=== PATIENT | female | born 1980 | race Caucasian/White ===

== ENCOUNTER 2019-09-29 18:09 | Emergency (ER) | payer OTHER ==
--- OUTSIDE RECORDS SUMMARY | 2019-09-29 18:12 | XMS REPORT | Clinical Summary ---
:1980 Author Organization [facility] Address [address] [place] [address] Care Team Providers Name Role Phone Kam Quinn MD Primary Care Provider Unavailable Allergies Not on File Medications Not on file Active Problems Not on file Social History Tobacco Use Types Packs/Day Years Used Date Never Assessed Sex Assigned at Date Recorded Not on file Job Start Date Occupation Industry Not on file Not on file Not on file Travel History Travel Start Travel End No recent travel history available. Last Filed Vital Signs Not on file Plan of Treatment Not on file Results Not on fileafter 09/28/2018 Insurance Payer Benefit Plan / Group Subscriber ID Type Phone A ddress [facility] [employer] xxxxxxxxx HMO/POS CARE CHOICE [phone] (Work)
--- OUTSIDE RECORDS SUMMARY | 2019-09-29 18:12 | XMS REPORT | Clinical Summary ---
:1980 Author Organization [facility] Address [address] [place] [address] Care Team Providers Name Role Phone Ronaldo Pang MD Primary Care Provider Allergies Active Allergy Reactions Severity Noted Date Comments Latex Rash Low 02/02/2012 Medications Medication Sig Dispensed Refills Start End Status Date Date levothyroxine 0 Active (SYNTHROID, LEVOXYL) 8 137 mcg tablet gabapentin (NEURONTIN) 0 Active 300 mg capsule 8 doxycycline (ORACEA) 0 Active 40 mg capsule 8 methocarbamol Take 500 mg 0 Acti ve (ROBAXIN) 500 MG by mouth 4 tablet (four) times a day. etodolac (LODINE) 500 0 Active MG tablet 6 hydroxychloroquine Take by 0 A ctive (PLAQUENIL) 200 mg mouth. tablet spironolactone 0 Activ e (ALDACTONE) 25 MG 6 tablet hydroxychloroquine 0 D iscontinued (PLAQUENIL) 200 mg 8 019 tablet spironolactone 0 Disco ntinued (ALDACTONE) 25 MG 8 019 tablet etodolac (LODINE) 200 Take 200 mg 0 Discontinued MG capsule by mouth 019 every 8 (eight) hours. cyclobenzaprine Take 1 tablet 30 tablet 0 Discontinued (FLEXERIL) 10 mg (10 mg total) 9 019 (Reorder) tablet by mouth 3 (three) times a day as needed for muscle spasms for up to 30 days. cyclobenzaprine Take 1 tablet 30 tablet 0 (FLEXERIL) 10 mg (10 mg total) 9 019 tablet by mouth 3 (three) times a day as needed for muscle spasms for up to 30 days. levothyroxine 0 Discon tinued (SYNTHROID, LEVOXYL) 6 019 150 mcg tablet clindamycin (CLEOCIN) Take 1 21 capsule 0 300 MG capsule capsule (300 9 019 mg total) by mouth 3 (three) times a day for 7 days. bacitracin 500 Apply 28 g 1 Expir ed unit/gram ointment topically 2 9 019 (two) times a day for 30 days. bacitracin 500 Apply 28 g 1 Expir ed unit/gram ointment topically 2 9 020 (two) times a day for 30 days. Active Problems Problem Noted Date Cervicalgia 10/25/2017 Cervical radiculopathy 10/25/2017 Encounters Date Type Specialty Care Team Description 05/02/2019 Hospital Encounter Radiology Giovanny Jimenez, Low renan k pain, unspecified renan k pain laterality , unspecified chronicity, unspecified whe ther sciatica presen t 05/02/2019 Hospital Encounter Giovanny Rand, Thoraci c spine pain 05/02/2019 Hospital Encounter Radiology Giovanny Jimenez, Neck pa in MD 04/16/2019 Transcribe Orders Access Giovanny Jimenez Neck tam n (Primary Dx); Thoracic spine pain; Low back pain, unspecified back pain laterality, unspecified chronicity, unspecified whether sciatica present 02/20/2019 Hospital Encounter Radiology Nancy Knott w anum exam; MD Carlene Breast cancer s creening 01/29/2019 Ancillary Procedure Obstetrics and Nancy Knott Dys pareunia in female; Gynecology MD Carlene Fibroids 01/29/2019 Office Visit Obstetrics Nancy Lynn woman exam (Primary Dx); Gynecology MD Carlene Breast cancer s creening; Dyspareunia in female; Fibroids 11/15/2018 Office Visit General Surgery Hugo, Gastric poly ps (Primary Dx); Quita Poon MD Fissure, anal 10/18/2018 Office Visit General Surgery Sg Arias, kelvin (Primary Dx); Quita Poon MD Internal hemor rhoids without complication after 09/28/2018 Family History Medical History Relation Name Comments Hypertension Brother Cancer Father skin cancer Diabetes Father Hypertension Father Diabetes Mother Hypertension Mother Cancer Paternal Grandfather skin Cancer Paternal Grandmother lung cancer Relation Name Status Comments Brother Father Mother Paternal Grandfather Paternal Grandmother Social History Tobacco Use Types Packs/Day Years Used Date Never Smoker Smokeless Tobacco: Never Used Alcohol Use Drinks/Week oz/Week Comments Yes 12 Standard drinks or equivalent 12.0 Sex Assigned at Date Recorded Not on file Job Start Date Occupation Industry Not on file Not on file Not on file Travel History Travel Start Travel End No recent travel history available. Last Filed Vital Signs Vital Sign Reading Time Taken Comments Blood Pressure 122/84 01/29/2019 11:26 AM CDT Pulse 87 01/29/2019 11:26 AM CDT Temperature 36.9 C (98.4 F) 11/15/2018 1:27 PM CDT Respiratory Rate - - Oxygen Saturation - - Inhaled Oxygen Concentration - - Weight 66.2 kg (146 lb) 01/29/2019 11:26 AM CDT Height 167.6 cm (5' 6") 01/29/2019 11:26 AM CDT Body Mass Index 23.57 01/29/2019 11:26 AM CDT Plan of Treatment Health Maintenance Due Date Last Done Comments CERVICAL CANCER SCREENING 11/18/1999 INFLUENZA VACCINE 12/20/2019 04/09/2015, 02/18/2015, 2013 Procedures Procedure Name Priority Date/Time Associated Comments Diagnosis MRI LUMBAR SPINE WO Routine 05/02/2019 12:15 Low back pain, Re sults for this CONTRAST PM RESEARCH LABORATORY MANAGER unspecified back procedure a re in pain laterality, the results unspecified section. chronicity, unspecified whether sciatica present MRI THORACIC SPINE WO Routine 05/02/2019 12:08 Thoracic spine pain Results for this CONTRAST PM RESEARCH LABORATORY MANAGER procedure are i n the results section. MRI CERVICAL SPINE WO Routine 05/02/2019 12:08 Neck pain Re sults for this CONTRAST PM RESEARCH LABORATORY MANAGER procedure are i n the results section. MAMMO BREAST SCREEN Routine 02/20/2019 12:31 Well woman exam Results for this TOMOSYNTHESIS PM CDT Breast cancer procedure are in BILATERAL screening the results section. THINPREP IMAGING PAP Routine 01/29/2019 3:01 Well woman exa m Results for this AND HPV MRNA E6/E7 PM CDT procedure are in REFLEX HPV 16,18/[address] the resu lts WITH CT/G section. US PELVIC TRANSVAGINAL Routine 01/29/2019 1:02 Dyspareunia in Results for this PM CDT female procedure are in Fibroids the results section. T4, FREE Routine 01/29/2019 12:12 Well woman exam Results for this PM CDT procedure are i n the results section. LIPID PANEL Routine 01/29/2019 12:12 Well woman exam Results for this PM CDT procedure are i n the results section. COMPREHENSIVE Routine 01/29/2019 12:12 Well woman exam Results for this METABOLIC PANEL PM CDT procedure ar e in the results section. CBC WITH PLATELET AND Routine 01/29/2019 12:12 Well woman exam Results for this DIFFERENTIAL PM CDT procedure are i n the results section. THYROID STIMULATING Routine 01/29/2019 12:12 Well woman exam R esults for this HORMONE PM CDT procedure are i n the results section. HEMOGLOBIN A1C Routine 01/29/2019 12:12 Well woman exam Result s for this PM CDT procedure are i n the results section. after 09/28/2018 Results MRI Lumbar Spine Wo Contrast (05/02/2019 12:15 PM RESEARCH LABORATORY MANAGER) Specimen Narrative Performed At EXAMINATION: MRI LUMBAR SPINE WO CONTRAS T [facility] CLINICAL HISTORY: M54.5 Low back pain, M 54.5 COMPARISON: MRI L-spine 07/27/2015. TECHNIQUE: Multiplanar multisequence nonenhanced MRI e xamination was performed of the Lumbar spine. FINDINGS: There are 5 non-rib bearing lumbar type vertebrae, the lowest labeled L5 in this report as identified by the lumbosacral angle and iliolumbar ligaments. There is progressing disc degeneration at L 5-S1 when compared to the prior MRI from 2016 as detailed below. There appears to be a right-sided pars interart icularis defect at L5 on the left, image 13 of series 2. There is marked bilateral posterior facet arthrosis with newly appearing 4 mm sp ondylolisthesis L5 on S1. No suspicious osseous lesions. Vertebral body heights are preserved. Conus medullaris terminates appropriately at the L2 L1 intervertebral level.No abnormal T2 hyperintense intramedullary signa l identified. The cauda equina nerve roots are symmetric and chang l in appearance. No abnormal thickening or clumping ident ified. Evaluation of the visualized soft tissues demonstrates no mass, adenopathy or aneurysm. No hydronephrosi s. Axial images through the disc spaces dem onstrate the following: L1-L2: No significant posterior disc disease, spinal c anal, subarticular zone, or neural foraminal stenosis. L2-L3: No significant posterior disc disease, spinal c anal, subarticular zone, or neural foraminal stenosis. L3-L4: No significant posterior disc disease, spinal c anal, subarticular zone, or neural foraminal stenosis. L4-L5: No significant posterior disc disease, spinal c anal, subarticular zone, or neural foraminal stenosis. Moderate posterior facet arthrosis is noted bilaterally. L5-S1: Grade 1 spondylolisthesis with uncovering the d isc and mild posterior disc bulge which results in marked left and mild to moderate right neural foraminal stenosis when combined with mar ked facet arthrosis, image 3 of series 6. Central canal is patent. There is contact of the exiting L5 nerve root on the left secondary to bulging disc material, imag e 13 of series 2. Evaluation of other visualized levels demonstrates no significant posterior disc disease, spinal canal, subarticular zon e, or neural foraminal stenosis. IMPRESSION: Progressing spondylolisthesis L5-S1 when compared to t he prior MRI from 2015, resulting in marked left neural foraminal stenos is and contact of the exiting L5 nerve root as detailed above. Recommend correlation for radiculopathy distribution. [id number] Procedure Note Hm Interface, Radiology Results Incoming - 05/02/2019 1:25 PM RESEARCH LABORATORY MANAGER EXAMINATION: MRI LUMBAR SPINE WO CONTRAST CLINICAL HISTORY: M54.5 Low back pain, M 54.5 COMPARISON: MRI L-spine 07/27/2015. TECHNIQUE: Multiplanar multisequence non enhanced MRI examination was performed of the Lumbar spine. FINDINGS: There are 5 non-rib bearing lumbar type vertebrae, the lowest labeled L5 in this report as identified by the lumbosacral angle and iliolumbar ligaments. There is progressing disc degeneration at L5-S1 when compared to the prior MRI from 2016 as detailed below. There appears to be a right-sided pars interarticularis defect at L5 on the left, image 13 of series 2. There is marked bilateral posterior facet arthrosis with newly appearing 4 mm spondylolisthesis L5 on S1. No suspicious osseous lesions. Vertebral body heights are preserved. Conus medullaris terminates appropriatel y at the L2 L1 intervertebral level.No abnormal T2 hyperintense intramedullary signal identified. The cauda equina nerve roots are symmetric and normal in appearance. No abnormal thickening or clumping identifi ed. Evaluation of the visualized soft tissue s demonstrates no mass, adenopathy or aneurysm. No hydronephrosis. Axial images through the disc spaces dem onstrate the following: L1-L2: No significant posterior disc dis ease, spinal canal, subarticular zone, or neural foraminal stenosis. L2-L3: No significant posterior disc dis ease, spinal canal, subarticular zone, or neural foraminal stenosis. L3-L4: No significant posterior disc dis ease, spinal canal, subarticular zone, or neural foraminal stenosis. L4-L5: No significant posterior disc dis ease, spinal canal, subarticular zone, or neural foraminal stenosis. Moderate posterior facet arthrosis is noted bilaterally. L5-S1: Grade 1 spondylolisthesis with un covering the disc and mild posterior disc bulge which results in marked left and mild to moderate right neural foraminal stenosis when combined with marked facet arthrosis, image 3 of series 6. Central canal is patent. There is contact of the exiting L5 nerve root on the left secondary to bulging disc material, image 13 of series 2. Evaluation of other visualized levels de monstrates no significant posterior disc disease, spinal canal, subarticular zone, or neural foraminal stenosis. IMPRESSION: Progressing spondylolisthesis L5-S1 when compared to the prior MRI from 2016, resulting in marked left neural foraminal stenosis and contact of the exiting L5 nerve root as detailed above. Recommend correlation for radiculopathy distribution. [id number] Performing Organization Address City/State/Zipcode Phone Number [facility] [address] [place] [address] MRI Thoracic Spine Wo Contrast (05/02/2019 12:08 PM RESEARCH LABORATORY MANAGER) Specimen Narrative Performed At EXAMINATION: MRI THORACIC SPINE WO CONTR AST [facility] CLINICAL HISTORY: M54.6 Pain in thoracic spine, M54.6 COMPARISON: None TECHNIQUE: Multiplanar multisequence noncontrast enhan frank examination was performed of the thoracic spine. FINDINGS: 12 rib-bearing thoracic type vertebrae visualized. The alignment is within normal limits. No subluxation. No abnormal guanaco ow edema. No suspicious osseous lesions. No degenerative marrow sig nal abnormality. Vertebral body and intervertebral disc h eights are preserved. No significant posterior disc disease, spinal canal, s ubarticular zone or neural foraminal stenosis throughout the thoracic s pine. No abnormal spinal cord signal. Conus medullaris terminates approp riately at the L1-L2 intervertebral level. Limited visualization the chest demonstrates no pleura l effusion or suspicious lung mass. Major vascular flow voids are pr esent, demonstrating patency. No hydronephrosis . IMPRESSION: No significant thoracic spine abnormalit y identified. [id number] Procedure Note Hm Interface, Radiology Results Incoming - 05/02/2019 1:26 PM RESEARCH LABORATORY MANAGER EXAMINATION: MRI THORACIC SPINE WO CONTRAST CLINICAL HISTORY: M54.6 Pain in thoracic spine, M54.6 COMPARISON: None TECHNIQUE: Multiplanar multisequence non contrast enhanced examination was performed of the thoracic spine. FINDINGS: 12 rib-bearing thoracic type vertebrae v isualized. The alignment is within normal limits. No subluxation. No abnormal marrow edema. No suspicious osseous lesions. No degenerative marrow signal abnormality. Vertebral body and intervertebral disc heights are preserved. No significant posterior disc disease, s john canal, subarticular zone or neural foraminal stenosis throughout the thoracic spine. No abnormal spinal cord signal. Conus medullaris terminates appropriately at the L1-L2 intervertebral level. Limited visualization the chest demonstr ates no pleural effusion or suspicious lung mass. Major vascular flow voids are present, demonstrating patency. No hydronephrosis. IMPRESSION: No significant thoracic spine abnormalit y identified. [id number] Performing Organization Address City/State/Zipcode Phone Number [facility] [address] [place] [address] MRI Cervical Spine Wo Contrast (05/02/2019 12:08 PM RESEARCH LABORATORY MANAGER) Specimen Narrative Performed At This result has an attachment that is no t available. EXAMINATION: MRI CERVICAL SPINE WO CONTRAST [facility] CLINICAL HISTORY: M54.2 Cervicalgia, M54.2 COMPARISON: MRI C-spine 11/05/2017. TECHNIQUE: Multiplanar multisequence non contrast enhanced examination was performed of the cervical spine. FINDINGS: No significant interval change appearing since the prior MRI from 2018. There is similar mild reversal of cervical lordosis, however no subluxation. Focal Modic type I marrow edema pattern degenerative changes are noted along the adjacent endplates of the C5-C6 intervertebral disc space, lucio ge 6 of series 3. Vertebral body heights are preserved. No suspicious osseous lesion. No developmental canal narrowing. The cervicomedullary junction is normal in appearance. No spinal cord signal abnormality. No prevertebral edema or neck mass ident ified. No cervical lymphadenopathy identified. Major vascular flow voids are present, demonstrating patency. Axial images through the disc spaces demonstrate the f ollowing: C1-C2: No significant spinal canal stenosis. C2-C3: No significant posterior disc dis ease, spinal canal, subarticular zone, or neural foraminal stenosis. C3-C4: No significant posterior disc dis ease, spinal canal, subarticular zone, or neural foraminal stenosis. C4-C5: No significant posterior disc dis ease, spinal canal, subarticular zone, or neural foraminal stenosis. C5-C6: Mild to moderate intervertebral d isc height loss with circumferential disc bulge which indents the ventral thecal sac and results in moderate bilateral neural foraminal stenosis when combined wit h marginal endplate osteophytes, image 21 of series 6. Spinal canal is patent. C6-C7: No significant posterior disc dis ease, spinal canal, subarticular zone, or neural foraminal stenosis. C7-T1: No significant posterior disc dis ease, spinal canal, subarticular zone, or neural foraminal stenosis. IMPRESSION: Similar moderate bilateral neural forami nal stenosis at C5-C6 secondary to intervertebral disc height loss, bulging disc material and marginal endplate osteophytes. There is also focal Modic type I marrow edema pattern degenerative changes along the adjacent endplates which likely contribute to discogen ic pain. [id number] Procedure Note Hm Interface, Radiology Results - 05/02/2019 1:21 PM RESEARCH LABORATORY MANAGER EXAMINATION: MRI CERVICAL SPINE WO CONTRAST CLINICAL HISTORY: M54.2 Cervicalgia, M54 .2 COMPARISON: MRI C-spine 11/05/2017. TECHNIQUE: Multiplanar multisequence non contrast enhanced examination was performed of the cervical spine. FINDINGS: No significant interval change appearing since the prior MRI from 2018. There is similar mild reversal of cervical lordosis, however no subluxation. Focal Modic type I marrow edema pattern degenerative changes are noted along the adjacent endplates o f the C5-C6 intervertebral disc space, lucio ge 6 of series 3. Vertebral body heights are preserved. No suspicious osseous lesion. No developmental canal narrowing. The cervicomedullary junction is normal in appearance. No spinal cord signal abnormality. No prevertebral edema or neck mass ident ified. No cervical lymphadenopathy identified. Major vascular flow voids are present, demonstrating patency. Axial images through the disc spaces dem onstrate the following: C1-C2: No significant spinal canal steno sis. C2-C3: No significant posterior disc dis ease, spinal canal, subarticular zone, or neural foraminal stenosis. C3-C4: No significant posterior disc dis ease, spinal canal, subarticular zone, or neural foraminal stenosis. C4-C5: No significant posterior disc dis ease, spinal canal, subarticular zone, or neural foraminal stenosis. C5-C6: Mild to moderate intervertebral d isc height loss with circumferential disc bulge which indents the ventral thecal sac and results in moderate bilateral neural foraminal stenosis when combined with marginal endplate osteophytes, image 21 of series 6. Spinal canal is patent. C6-C7: No significant posterior disc dis ease, spinal canal, subarticular zone, or neural foraminal stenosis. C7-T1: No significant posterior disc dis ease, spinal canal, subarticular zone, or neural foraminal stenosis. IMPRESSION: Similar moderate bilateral neural forami nal stenosis at C5-C6 secondary to intervertebral disc height loss, bulging disc material and marginal endplate osteophytes. There is also focal Modic type I marrow edema pattern degenerative changes along the adjacent endplates which likely contribu te to discogenic pain. [id number] Performing Organization Address City/State/Zipcode Phone Number [facility] [address] [place] [address] Mammo Breast Screen Tomosynthesis Bilateral (02/20/2019 12:31 PM CDT) Specimen Narrative Performed At PROCEDURE: MAMMO BREAST SCREEN TOMOSYNTH ESIS [facility]ILATERAL [facility] Computer aided detection was utilized for the interpre tation of the digital bilateral screening mammography with tomosynthesis. COMPARISON: No priors. DENSITY: The breast are heterogenously dense, which ma y obscure small masses. No sign of any suspicious mass or microc alcification or adverse changes. IMPRESSION: No mammographic evidence o f malignancy. RECOMMENDATION: Comparison with physical exam and nico al screening mammography. BI-RADS 1: NEGATIVE This facility is accredited by The [employer] for Mammography. A negative x-ray report should not delay biopsy if a d ominant or clinically suspicious mass is present. Not all cancers are identified by x-ray. [id number] Performing Organization Address City/State/Zipcode Phone Number KIM[facility]OR[facility] [address] [place] [address] [facility] Pap and HPV mRNA E6/E7 reflex HPV 16,18/[address]/NG (01/29/2019 3:01 PM CDT) Clinical information None given [facility] [place] Date of last NONE GIVEN Heroic menstrual period [facility] [place] Prev. pap: NONE GIVEN [facility]ic [facility] [place] Prev. bx: NONE GIVEN [facility] [place] Source None given [facility] [place] Statement of adequacy [facility] Comment: DI[facility]NOST[facility] Satisfactory for evaluation. [place] Endocervical/transformation zone component present. Age and/or menstrual status not provided Interpretation/result Comment: Negative [facility] : for intraepithelial DI[facility]NO[facility]ICS lesion or [place] malignancy. Comment [facility] Comment: DI[facility] This Pap test has been evaluated with [employer] technology. Risk Management Intern [facility] Comment: DIAGNOSTICS VXJ, CT(ASCP) [place] CT screening location: [place] [address] [address], [facility] [address] Comment [facility] Comment: DIAGNOSTICS EXPLANATORY NOTE: [place] The Pap is a screening test for cervical cancer. It is not a diagnostic test and is subject to false negative and false positive results. It is most reliable when a satisfactory sample, regularly obtained, is submitted with relevant clinical findings and history, and when the Pap result is evaluated along with historic and current clinical information. HPV mRNA e6/e7 Not Detected Not Detected [facility] Comment: DIAGNOSTICS-IRVI This test was performed using the APTIMA HPV Assay ([employer] NG II This assay detects E6/E7 viral messenger RNA (mRNA) fr om 14 high-risk HPV types (16,18,31,33,35,39,45,51,52,56,58, 59,66,68). The analytical performance characteristics of this assay have been determined by [facility]. The modifications have not been cleared or approved by the FDA. This assay has been validated pursuant to the CLIA regulations and is used for clinical purposes. Chlamydia trachomatis NOT DETECTED NOT DETECTED [facility] RNA, TMA [facility] NG II Neisseria gonorrhoeae NOT DETECTED NOT DETECTED [facility] RNA, [facility] NG II (Always message) [facility] Comment: DI[facility]NOSTICS-IRVI This test was performed using the APTIMA COMBO2 Assay NG II ([employer] The analytical performance characteristics of this assay, when used to test SurePath specimens have been determined by [facility]. Specimen Endocervical Resulting Agency Comment Performing Organization Information: Site ID: [id number] [facility]: [facility] Address: [address] [place] [id number] Director: Dr. Dominick enrique Site ID: [id number] Address: [address] [place] [id number] Director: Dominick Haskins Performing Organization Address [facility] Cent[facility] Phone Number [facility] [address] [address] [facility] [employer] [address] [phone] Pelvic Transvaginal (01/29/2019 1:02 PM CDT) Specimen Narrative Performed At This result has an attachment that is no t available. Uterus: 8.21 x 4.78x 4.31cm [facility] Endometrium: 6.07mm Free Fluid: no Rt Ovary: 2.86 x 2.34 x 1.43cm Rt Adnex[employer]: wnl Lt Ovary: 2.91x 2.54 x 2.47cm Lt Adnexa: wnl Normal appearing uterus Nancy Knott MD Performing Organization Address City/[facility]/Zipcode Phone Number [facility] [address] [place] [address] CBC with platelet and differential (01/29/2019 12:12 PM CDT) WBC 4.9 3.8 - 10.8 [facility] Thousand/uL [place] RBC 3.74 (L) 3.80 - 5.10 [facility] Million/uL [place] HGB 12.8 11.7 - 15.5 [facility] g/dL [place] HCT 36.6 35.0 - 45.0 % [facility] [place] MCV 97.9 80.0 - 100.0 fL [facility] [place] MCH 34.2 (H) 27.0 - 33.0 pg [facility] [place] MCHC 35.0 32.0 - 36.0 [facility] g/dL [place] RDW 11.7 11.0 - 15.0 % [facility] [place] Platelet count 208 140 - 400 [facility] Thousand/uL [place] MPV 10.6 7.5 - 12.5 fL [facility] [place] Neutrophils, absolute 2,935 1,500 - 7,800 [facility] cells/uL [place] Lymphocytes, absolute 1,313 850 - 3,900 [facility] cells/uL [place] Monocytes, absolute 470 200 - 950 [facility] cells/uL [place] Eosinophils, absolute 142 15 - 500 [facility] cells/uL [place] Basophils, absolute 39 0 - 200 [facility] cells/uL [place] Neutrophils 59.9 % [facility] [place] Lymphocytes 26.8 % [facility] [place] Monocytes 9.6 % [facility] [place] Eosinophils 2.9 % [facility] [place] Basophils + RC 0.8 % [facility] [place] Specimen Blood Resulting Agency Comment Performing Organization Information: Site ID: [id number] Address: [address] [place] [phone] Director: Dominick Haskins Performing Organization Address City/State/Zipcode Phone Number [facility] [address] [address] Thyroid stimulating hormone (01/29/2019 12:12 PM CDT) Pathologist Sig nature TSH 0.92 mIU/L [facility] Comment: [place] Reference Range > or = 20 Years 0.40-4.50 Ranges First trimester 0.26-2.66 Second trimester 0.55-2.73 Third trimester 0.43-2.91 Specimen Blood Resulting Agency Comment Performing Organization Information: Site ID: [facility] Name: [facility] Address: [address] [place] [phone] Director: Dominick Haskins Performing Organization Address [facility] Phone Number [facility] [place] [phone] T4, free (01/29/2019 12:12 PM CDT) Pathologist Sig nature T4, free 1.4 0.8 - 1.8 ng/dL [facility] [place] Specimen Blood Resulting Agency Comment Performing Organization Information: Site ID: [id number] Name: [facility] Address: [address] [place] [phone] Director: Dominick Haskins Performing Organization Address City/[facility] Phone Number [facility] [address] [address] Hemoglobin A1c (01/29/2019 12:12 PM CDT) Pathologist [facility] Hemoglobin A1C 4.7 <5.7 % of [facility] Comment: total Hgb [place] For the purpose of screening for the presence of diabetes: <5.7% Consistent with the absence of diabetes 5.7-6.4% Consistent with increased risk for diabe kishan (prediabetes) > or =6.5% Consistent with diabetes This assay result is consistent with a decreased risk of diabetes. Currently, no consensus exists regarding use of hemoglobin A1c for diagnosis of diabetes in children. According to [place] Diabetes Association (ADA) guidelines, hemoglobin A1c <7.0% represents optimal control in non- diabetic patients. Different metrics may apply to specific patient populations. Standards of Medical Care in Diabetes(ADA). Specimen Blood Resulting Agency Comment Performing Organization Information: Site ID: [facility] Name: [facility] Address: [address] [place] [phone] Director: Dominick Haskins Performing Organization Address [facility] Phone Number [facility] [address] [phone] Lipid panel (01/29/2019 12:12 PM CDT) Cholesterol, total 192 <200 mg/dL [facility] [place] HDL cholesterol 88 >50 mg/dL [facility] [place] Triglycerides 69 <150 mg/dL [facility] [place] LDL cholesterol 88 mg/dL (calc) [facility] calculated Comment: [place] Reference range: <100 Desirable range <100 mg/dL for primary prevention; <70 mg/dL for patients with CHD or diabetic patients with > or = 2 CHD risk factors. LDL-C is now calculated using the Johny calculation, which is a validated novel method providi ng better accuracy than the Friedewald equation in the estimation of LDL-C. Buster GONZÁLES et al. AMADEO. 2013;310(19): 0597-4816 (http://education.interspireSubmit.Donde/faq/RZQ647) Cholesterol/HDL 2.2 <5.0 (calc) [facility] ratio [place] Non-HDL cholesterol 104 <130 mg/dL [facility] Comment: (calc) [place] For patients with diabetes plus 1 major ASCVD risk factor, treating to a non-HDL-C goal of <100 mg/dL (LDL-C of <70 mg/dL) is considered a therapeutic option. Specimen Blood Resulting Agency Comment Performing Organization Information: Site ID: [id number]: [facility] Address: [address] [place] [phone] Director: Dominick Haskins Performing Organization Address City/State/Zipcode Phone Number [facility] [place] [address] [place] [phone] Comprehensive metabolic panel (01/29/2019 12:12 PM CDT) [facility] Glucose 84 65 - 99 [facility] Comment: mg/dL [place] Fasting reference interval BUN 8 7 - 25 mg/dL [facility] [place] Creatinine 0.88 0.50 - 1.10 [facility] mg/dL [place] EGFR Non-Afr. 82 > OR = 60 [facility] [place] mL/min/1.73m [place] 2 EGFR 95 > OR = 60 [facility] [place] mL/min/1.73m [place] 2 BUN/creatinine NOT APPLICABLE 6 - 22 [facility] ratio (calc) [place] Sodium 137 135 - 146 [facility] mmol/L [place] Potassium 3.9 3.5 - 5.3 [facility] mmol/L [place] Chloride 102 98 - 110 [facility] mmol/L [place] CO2 27 20 - 32 [facility] mmol/L [place] Calcium 9.3 8.6 - 10.2 [facility] mg/dL [place] Protein 6.5 6.1 - 8.1 [facility] g/dL [place] Albumin, S 4.2 3.6 - 5.1 [facility] g/dL [place] Globulin, total 2.3 1.9 - 3.7 [facility] g/dL (calc) [place] Albumin/globulin 1.8 1.0 - 2.5 [facility] ratio (calc) [place] Total bilirubin 0.5 0.2 - 1.2 [facility] mg/dL [place] Alkaline 73 33 - 115 U/L [facility] phosphatase [place] AST 21 10 - 30 U/L [facility] [place] ALT 17 6 - 29 U/L [facility] [place] Specimen Blood Resulting Agency Comment Performing Organization Information: Site ID: [id number] Name: [facility] Address: [address] [place] [address] Director: Dominick Haskins Performing Organization Address City/State/Zipcode Phone Number [facility] [place] [address] [place] [address] after 09/28/2018 Advance Directives For more information, please contact: [phone] Type Date Recorded Patient Process Automation Engineer Explanati on Advance Directives, Living Will and Medical Power of Digital Communications Manager
--- OUTSIDE RECORDS SUMMARY | 2019-09-29 18:13 | XMS REPORT ---
:1980 Author Name MILES Care Team Providers Name Role Phone MILES Unavailable Unavailable Unavailable Reason for Referral No Reason for Referral was given. History of Present Illness No HPI available. 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 (Active)Biotin 5000 MCG Oral Capsule;TAKE 1 CAPSULE DAILY. (Active)Levothyroxine Sodium 137 MCG Oral Tablet;TAKE 1 TABLET DAILY; Start Date: 09/12/2010; End Date: (Active)Meloxicam 7.5 MG Oral Tablet;TAKE 1 TABLET TWICE DAILY NEEDED. (Active) Allergies and Adverse Reactions Latex Exam Gloves MISC;Itching;Rash (Active)Levaquin TABS;Other (Active) Past Medical History History ofSjogren's Syndrome (710.2); (Resolved)History of Supraventricular Tachycardia With Aberrant Conduction (427.89); (Resolved ) Family History Family history ofRenal Failure (Active)Family history ofHypothyroidism (Active) Social History Former Smoker (V15.82); (Active) Advance Directives No Advance Directives available. Encounters AUDIT 11/22/2012EST, Provider: MARTHA AQUINO, Status: Pen, Time: 8:30 AM 05/26/2013
--- OUTSIDE RECORDS SUMMARY | 2019-09-29 18:13 | XMS REPORT ---
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 Are you a: Never Smoker September 09 5 alcohol . social drinker September 09, 2014 Summary Purpose eClinicalWorks Submission
--- OUTSIDE RECORDS SUMMARY | 2019-09-29 18:13 | XMS REPORT | Continuity of Care Document ---
:[address] [facility] Care Team Providers Name Role Phone [facility] Unavailable Un available Problems Problem Status Onset Classification Date Comments Sourc e Date Reported Screening - health Active Problem 08/09/2018 Data OPID check (procedure) 015 migrated [place] [facility] from [facility] on 12/23/14. Celiac disease Active Problem 08/09/2018 Data O PID (disorder) 014 migrated [place] from [facility] on 10/20/14. Disease of Active Problem 08/09/2018 Data migrated from [facility] on 12/23/14. OPID connective tissues 014 Data migrat ed from [facility] on 11/25/14. [place] (disorder) Data migrated from [facility] on 10/20/14. Imaging Hyperthyroidism Active Problem 08/09/2018 Data OPID (disorder) 014 migrated [place] from [facility] on 10/20/14. PREVENTIVE HEALTH Inactive Condition 11/23/2014 [facility] Medical CARE 014 Group CELIAC DISEASE Active Condition 11/23/2014 [facility] edical 014 Group UNSPECIFIED Active Condition 11/23/2014 [facility] megan HYPOTHYROIDISM 014 Group CONNECTIVE TISSUE Active Condition 11/23/2014 [facility] Medical DISEASE 014 Group CELIAC DISEASE [place] 013 [facility] Undifferentiated Active Problem 04/07/2015 Sa been Najam connective tissue disease Sicca syndrome Active Problem 04/07/2015 Sabe en Najam Sicca Active Problem 04/07/2015 Teodora Na jam Unspecified Active Problem 04/07/2015 Teodora Najam diffuse connective tissue disease Immunology Studies Active 05/26/2013 [facility] Immunoglobulin Level Olecranon Bursitis Active 05/26/2013 [facility] Arthralgias In Active 05/26/2013 [facility] Multiple Sites [facility] Fatigue Active 05/26/2013 [facility] Lymph Nodes Active 05/26/2013 [facility] Hypothyroidism Active 05/26/2013 [facility] Thyroid Nodule Active 05/26/2013 [facility] Nontropical Active 05/26/2013 [facility] (Celiac) Sprue [facility]i cians Medications Medication Details Route Status Patient Ordering Order Source Instructions Provider Date HYDROCHLOROTHIAZIDE One time Active Medical TABS daily 2014 Group PLAQUENIL 200 MG two tabs once Active H Medical TABS daily 2014 Group LEVOTHYROXINE SODIUM 1 tab daily Active Medical 137 MCG TABS 2013 Group LEVOCARNITINE CAPS 1 caps twice Active Medical day 2013 Group FAMOTIDINE 10 MG 1 tab twice Active Medical TABS day 2013 Group FLONASE 50 MCG/ACT 1 spray in Active Medical SUSP each nostrill 2013 Group twice day BIOTIN TABS 1 QD Active Medical 2013 Group MULTIVITAMINS CAPS 1 caps daily Active Medical 2013 Group FISH OIL CAPS Active Medical 2013 Group FLONASE 50 MCG/ACT 1 spray in Active Medical SUSP each nostrill 2013 Group twice day LEVOTHYROXINE SODIUM one tab dialy Active 11/07 Medical 150 MCG TABS 2013 Group Tirosint 112 MCG ; Start Date: Active 02/18/ [facility] Oral Capsule 02/18/2013; 2012 Physici ans End Date: (Active) multivitamin Substitution Active [place] as Allowed, [facility] Fish Oil Substitution Active [place] Allowed [facility] Flonase 0.05 mg/inh Substitution Active [place] nasal spray Allowed, 2012 [facility] biotin Substitution Active [facility] Allowed 2012 Medical Center Levothroid 137 mcg Substitution Active [place] (0.137 mg) oral Allowed 2012 Medical tablet Center Ovcon 35 Substitution Active [place] Allowed, 2012 [facility] Levothyroxine Sodium ; Start Date: Active 09/12 137 MCG Oral Tablet 09/12/2010; 2010 Physicians End Date: (Active) Meme 0.35 MG Oral (Active) Active [facility] Tablet [facility] Centrum Ultra Womens (Active) Active [facility] Oral Tablet [facility]icians Biotin 5000 MCG Oral (Active) Active [facility] Capsule [facility]icians Meloxicam 7.5 MG (Active) Active [facility] Oral Tablet [facility] Levothyroxine Sodium (Active) Active U T 137 MCG Oral Tablet Phys icians Rogaine Mens 5 % (Active) Active [facility] External Foam [facility] Allergies, Adverse Reactions, Alerts Substance Category Reaction Severity Reaction Status Date Comments S ource type Reported Latex Exam drug allergy Itching, drug Active [facility] Gloves Rash allergy Physicia n MISC s Levaquin drug allergy Other drug Active [facility] TABS allergy Physicia n s levofloxac Assertion Drug Active Data OPID in<sup>1</ allergy migrated Hector aire sup> from [facility] on 09/17/14. Originally documented as LEVAQUIN. muscle tendon issue Levaquin Assertion Drug Active OP ID allergy [place] [facility] Latex<sup> Assertion Drug Active Data OPID 2</sup> allergy migrated Bellair e from [facility] on 07/21/15. Originally documented as LATEX. Latex Assertion Drug Active OPI D allergy [place] [facility] LEVAQUIN Drug allergy LEVAQUIN [facility] LATEX Environmenta LATEX l allergy Medica l Group GLUTAN Food allergy GL[facility] Medical Group Immunizations No Data Provided for This Section Results Order Name Results Value Reference Date Interpretation Comments Malu rce Range Chemistry CHOLESTEROL 170 - 199 2014 Medical Group Chemistry TRIGLYCERIDE 107 - 149 2014 Medical Group Chemistry HDL 83 >=61 2014 Medical Group Chemistry LDL 66 - 99 2014 Medical Group Chemistry SODIUM 140 MEQ/L 135 - 145 2014 [facility] Group Chemistry POTASSIUM 3.9 MEQ/L 3.5 - 5.1 2014 Medical Group Chemistry CREATININE 0.8 0.5 - 1.4 2014 Medical Group Chemistry BUN 12 7 - 22 2014 Medical Group Chemistry BUN/CREAT 15 6 - 25 2014 Medical Group Chemistry ALBUMIN 4.0 3.5 - 5.0 2014 Medical Group Chemistry CALCIUM 9.1 8.5 - 10.5 2014 Medical Group Chemistry SGPT (ALT) 25 0 - 65 2014 Medical Group Chemistry SGOT (AST) 22 0 - 37 2014 Medical Group Chemistry ALK PHOS 85 39 - 136 2014 Medical Group Chemistry TSH 0.206 0.360 - 3.740 2014 Medical Group Hematology HGB 13.8 12.0 - 16.0 2014 Medical Group Hematology HCT 41.4 36.0 - 48.0 2014 Medical Group Hematology PLATELETS 213 K/CMM 133 - 450 2014 Medical Group Hematology ESR 2 0 - 20 2014 Medical Group Chemistry CHOLESTEROL 176 - 199 2013 Medical Group Chemistry TRIGLYCERIDE 114 - 149 2013 Medical Group Chemistry HDL 74 >=61 2013 [facility] Group Chemistry LDL 79 - 99 2013 Medical Group Chemistry SODIUM 138 MEQ/L 135 - 145 2013 Medical Group Chemistry POTASSIUM 4.1 MEQ/L 3.5 - 5.1 2013 Medical Group Chemistry CREATININE 0.7 0.5 - 1.4 2013 Medical Group Chemistry BUN 9 7 - 22 2013 Medical Group Chemistry BUN/CREAT 13 6 - 25 2013 Medical Group Chemistry ALBUMIN 4.2 3.5 - 5.0 2013 Medical Group Chemistry CALCIUM 8.8 8.5 - 10.5 2013 Medical Group Chemistry SGPT (ALT) 25 0 - 65 2013 Medical Group Chemistry SGOT (AST) 19 0 - 37 2013 Medical Group Chemistry ALK PHOS 75 39 - 136 2013 Medical Group Chemistry TSH 0.137 0.360 - 3.740 2013 Medical Group Chemistry SGPT (ALT) 25 0 - 65 2013 Medical Group Chemistry SGOT (AST) 19 0 - 37 2013 Medical Group Chemistry ALK PHOS 75 39 - 136 2013 Medical Group Chemistry TSH 0.137 0.360 - 3.740 2013 Medical Group Hematology HGB 13.3 12.0 - 16.0 2013 Medical Group Hematology HCT 39.5 36.0 - 48.0 2013 Medical Group Hematology PLATELETS 215 K/CMM 133 - 450 2013 Medical Group Hematology ESR 4 0 - 20 2013 Medical Group Serology RPR Non Reactive 2013 Medical Group Serology DENISSE Positive 2013 Medical Group Serology RPR Non Reactive 2013 Medical Group Serology DENISSE Positive 2013 Medical Group Child Development Specialist PAP SMEAR Complete 2012 Medical Group Child Development Specialist PAP SMEAR Complete 2012 Medical Group Pathology PAP SMEAR Complete 2012 Medical [facility] Pathology Reports No Data Provided for This Section Diagnostic Reports Report Value Date Source Chest 2 views DX EXAM: XR CHEST 2 VIEWS 08/06/2018 OPID [place] DATE: 08/06/2018 14:57 CDT Imagin g INDICATION: - Z00.00 Enco unter for general adult medical examination without abnormal findings; R06.2 Wheezing. History of prior fissurectomy under general anesthesia on 07/01/2018 with coughing and wheezing since that time. COMPARISON: None TECHNIQUE: PA and lateral chest radiographs with abdominal shielding in place FINDINGS: No lung parenchyma l or pleural abnormalities are seen. Lazara and pulmonary vasculature are normal. Cardiomediastinal silhouette is normal in appearance. No acute bony abnormality is identified. IMPRESSION: No acute cardio pulmonary abnormality. No radiographic evidence of pneumonia. Spine thoracic 2 EXAM: THORACIC SPINE 2 VIEWS 02/06/2014 OPID [place] views DX Imaging DATE: Feb 06, 2014 12:17:00 PM INDICATION: mid back pain COMPARISON: None available TECHNIQUE: AP and lateral radiographs of the thoracic spine FINDINGS: The lateral view shows from T3 through L2. No fracture, malalignment or other bony abnormality is identified. Vertebral body height and disc height is maintained. Paraspinal soft tissues are within normal limits. IMPRESSION: Normal thoracic spine Consultation Notes No Data Provided for This Section Discharge Summaries No Data Provided for This Section History and Physicals No Data Provided for This Section Vital Signs Vital Sign Value Date Comments Source Height 65 11/23/2014 [facility] Weight 154 11/23/2014 [facility] Temperature Oral (F) 98.0 F 11/23/2014 [facility] megan Group Systolic (mm Hg) 121 11/23/2014 Medical Group Diastolic (mm Hg) 78 11/23/2014 Medical Group Heart Rate 92 11/23/2014 Medical Grou p Height 65 11/07/2013 Medical Gr[facility] p Weight 145 11/07/2013 Medical Grou p Temperature Oral (F) 99.3 F 11/07/2013 [facility] megan Group Heart Rate 78 11/07/2013 Medical Grou p Systolic (mm Hg) 102 11/07/2013 Medical Group Diastolic (mm Hg) 64 11/07/2013 Medical Group Diastolic (mm Hg) 70 12/18/2012 [facility] Systolic (mm Hg) 116 12/18/2012 [facility] dical Onset Respitory Rate 16 12/18/2012 [facility] Temperature Oral (F) 98.4 F 12/18/2012 [facility] Heart Rate 93 12/18/2012 [facility] On[facility] Weight 67.273 12/18/2012 [facility] Encounters Location Location Encounter Encounter Reason Attending ADM DC Stat us Source Details Type Number For Provider Date Date Visit AUDIT [id number] 11/22 /2012 Phys[facility] ns AUDIT [id number] 11/26 /2012 Phys[facility] ns AUDIT [id number] 11/28 /2012 Phys[facility] ns AUDIT [id number] 11/29 /2012 Physicia ns AUDIT [id number] 11/30 Physicia ns AUDIT [id number] 12/02 Physicia ns [facility] Outpatient [id number] CELIAC ATILLA 12/18 Active [facility] 0 DISEASE [facility] AUDIT [id number] 12/30 Physicia ns AUDIT [id number] 02/18 Physicia ns EST, [id number] 05/26 02/18 [place] Provider: /2013 CRISTA Galicia Y, Status: Pen, Time: 8:30 AM AUDIT [id number] 05/26 /2013 Physicia ns AUDIT [id number] 05/26 /2013 Physicia ns [facility] Lab Report [id number] Angus 11/18 11/18 Isai 22029 Kayla, /2013 [facility] [place] EST, [id number] 12/08 05/26 [place] Provider: /2013 CRISTA Galicia Y, Status: Pen, Time: 8:30 AM [facility] Outpt Diag [id number] Olga 02/06 02/07 M [facility] OPID Outpatient Services 1 [facility] /2013 [facility] Imaging - Imaging [place] [facility] Rheumatolog Lupus [id number] 08/26 08/26 [facility] [id number] /2014 Hiral am [id number] Rheumatolog lab results [id number] 09/09 09/09 [facility] follow up [id number] /2014 Nam [id number] [id number] [facility] Office [id number] Angus 11/23 11/23 [facility] [id number] [place] [facility] /[facility] Rheumatolog need apt [id number] 01/18 01/18 [facility] [id number] /2014 Hiral am [id number] [id number] Rheumatolog Unknown [id number] 03/04 03/04 [facility] [id number] /2014 Hiral am [id number] Rheumatolog [id number] 03/11 03/11 [facility] [id number] /2014 Hiral am [id number] [facility] Outpt Diag [id number] Olga 08/06 08/07 M [facility]ID Outpatient Services 2 [facility] Imaging - Imaging [place] Procedures Procedure Code Date Perfomer Comments Source vaginal Pap smear [id number] 01/19/2013 Complete Medi megan results Group colonoscopy [id number] 10/19/2006 [facility] Assessment and Plan No Data Provided for This Section Plan of Care Plan of Care Date Source [L] dsDNA Ab, IgG w/RFX IFA Titer 05/26/2013 [facility] 12/30/2012 Routine[QLH] TSH, 3RD GENERATION 02/18/2013 Routine[QLH] T4, FREE 02/18/2013 Routine [L] dsDNA Ab, IgG w/RFX IFA Titer 05/26/2013 [facility] 12/30/2012 Routine[QLH] TSH, 3RD GENERATION 02/18/2013 Routine[QLH] T4, FREE 02/18/2013 Routine [L] dsDNA Ab, IgG w/RFX IFA Titer 02/18/2013 [facility] 12/30/2012 Routine[QLH] TSH, 3RD GENERATION 02/18/2013 Routine[QLH] T4, FREE 02/18/2013 Routine [L] Le/TUBULAR PRODUCTS FABRICATOR Antibodies 12/30/2012 12/30/2012 [facility] Routine[L] dsDNA Ab, IgG w/RFX IFA Titer 12/30/2012 Routine Entertainment Centre Manager Referral 11/30/2012 12/02/2012 [facility] Routine Gastroenterology Referral 11/30/2012 [facility] 11/30/2012 RoutineDietician Referral 11/30/2012 Routine Social History Social History Date Source No data available for this section 08/07/2018 OP ID [facility] Social History ElementQualifiersDate Reported 09/09/2014 Teodora Faye Smoking status: . Are you a: Never Smoker September 09, 2014 alcohol . social drinker September 09, 2014 Former Smoker (V15.82); 05/26/2013 [place] [facility] (Active) Family History Value Date Source Family history of Renal Failure 05/26/2013 [facility] (Active) Family history of Hypothyroidism (Active) Family history of Renal Failure 05/26/2013 [facility] (Active) Family history of Hypothyroidism (Active) Family history of Renal Failure 02/18/2013 [facility] (Active) Family history of Hypothyroidism (Active) Family history of Renal Failure 12/30/2012 [facility] (Active) Family history of Hypothyroidism (Active) Family history of Renal Failure 12/02/2012 [facility] (Active) Family history of Hypothyroidism (Active) Family history of Renal Failure 11/30/2012 [facility] (Active) Family history of Hypothyroidism (Active) Family history of Renal Failure 11/29/2012 [facility] (Active) Family history of Hypothyroidism (Active) Family history of Renal Failure 11/28/2012 [facility] (Active) Family history of Hypothyroidism (Active) Family history of Renal Failure 11/26/2012 [facility] (Active) Family history of Hypothyroidism (Active) Family history of Renal Failure 11/22/2012 [facility] (Active) Family history of Hypothyroidism (Active) Advance Directives Order Name Results Value Date Source Advance Directives Advance Directives No Advance 05/26/2013 [facility] Directives available. Advance Directives Advance Directives No Advance 05/26/2013 [facility] Directives available. Advance Directives Advance Directives No Advance 02/18/2013 [facility] Directives available. Advance Directives Advance Directives No Advance 12/30/2012 [facility] Directives available. Advance Directives Advance Directives No Advance 12/02/2012 [facility] Directives available. Advance Directives Advance Directives No Advance 11/30/2012 [facility] Directives available. Advance Directives Advance Directives No Advance 11/29/2012 [facility] Directives available. Advance Directives Advance Directives No Advance 11/28/2012 [facility] Directives available. Advance Directives Advance Directives No Advance 11/26/2012 [facility] Directives available. Advance Directives Advance Directives No Advance 11/22/2012 [facility] Directives available. Functional Status No Data Provided for This Section
--- OUTSIDE RECORDS SUMMARY | 2019-09-29 18:13 | XMS REPORT ---
:1980 Author Name CHAVOMARTHA JAEGER Care Team Providers Name Role Phone MARTHA AQUINO Unavailable Unavailable Unavailable Reason for Referral No Reason for Referral was given. History of Present Illness No HPI available. 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 Encounters AUDIT 11/30/2012EST, Provider: MARTHA AQUINO, Status: Reid, Time: 8:30 AM 05/26/2013
--- OUTSIDE RECORDS SUMMARY | 2019-09-29 18:13 | XMS REPORT ---
:1980 Author Name Corazon Roe Care Team Providers Name Role Phone Corazon Roe Unavailable Unavailable Unavailable Reason for Referral No Reason for Referral was given. History of Present Illness No HPI available. 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 (Active)Centrum Ultra Womens Oral Tablet;TAKE 1 TABLET DAILY. (Active)Meloxicam 7.5 MG Oral Tablet;TAKE 1 TABLET TWICE DAILY NEEDED. (Active)Levothyroxine Sodium 137 MCG Oral Tablet;TAKE 1 TABLET DAILY; Start Date: 09/12/2010; End Date: (Active) Allergies and Adverse Reactions Latex Exam Gloves MISC;Itching;Rash (Active)Levaquin TABS;Other (Active) Past Medical History History ofSjogren's Syndrome (710.2); (Resolved)History of Supraventricular Tachycardia With Aberrant Conduction (427.89); (Resolved ) Family History Family history ofRenal Failure (Active)Family history ofHypothyroidism (Active) Social History Former Smoker (V15.82); (Active) Treatment Plan Harpsichord Maker Referral 11/30/2012 Routine Advance Directives No Advance Directives available. Encounters AUDIT 12/02/2012EST, Provider: MARTHA AQUINO, Status: Pen, Time: 8:30 AM 05/26/2013
--- OUTSIDE RECORDS SUMMARY | 2019-09-29 18:13 | XMS REPORT ---
:1980 Author Name MARTHA AQUINO Care Team Providers Name Role Phone MARTHA AQUINO Unavailable Unavailable Unavailable Reason for Referral No Reason for Referral was given. History of Present Illness No HPI available. Problems Normal Routine History And Physical Adult (V70.0); (Active)Immunology Studies Raised Immunoglobulin Level (795.79); (Active)Normal Routine History And Physical Adult (V70.0); (Active)Olecranon Bursitis (726.33); (Active)Arthralgias In Multiple Sites (719.49); (Active)Fatigue (780.79); (Active)Lymph Nodes Enlarged (785.6); (Active) Hypothyroidism (244.9); (Active)Thyroid Nodule (Active) Medication Meme 0.35 MG Oral Tablet;TAKE [...] Directives No Advance Directives available. Encounters AUDIT 11/29/2012EST, Provider: MARTHA AQUINO, Status: Pen, Time: 8:30 AM 05/26/2013
--- OUTSIDE RECORDS SUMMARY | 2019-09-29 18:13 | XMS REPORT ---
:1980 Author Name Wendi Reyes Care Team Providers Name Role Phone Wendi Reyes Unavailable Unavailable Unavailable Reason for Referral No Reason for Referral was given. History of Present Illness No HPI available. Problems Normal Routine History And Physical Adult (V70.0); (Active)Immunology Studies Raised Immunoglobulin Level (795.79); (Active)Hypothyroidism (244.9); (Active)Thyroid Nodule (Active)Lymph Nodes Enlarged (785.6); (Active)Fatigue (780.79); (Active)Normal Routine History And Physical Adult (V70.0); (Active)Olecranon Bursitis (726.33); ( Active)Arthralgias In Multiple Sites (719.49); (Active) Medication Meloxicam 7.5 MG Oral Tablet;TAKE 1 TABLET TWICE DAILY NEEDED. (Active)Meme 0.35 MG Oral Tablet;TAKE 1 TABLET DAILY (Active)Centrum Ultra Womens Oral Tablet ;TAKE 1 TABLET DAILY. (Active)Biotin 5000 MCG Oral [...] Directives No Advance Directives available. Encounters AUDIT 11/28/2012EST, Provider: MARTHA AQUINO, Status: Pen, Time: 8:30 AM 05/26/2013
--- OUTSIDE RECORDS SUMMARY | 2019-09-29 18:13 | XMS REPORT ---
:1980 Author Name Wendi Reyes Care Team Providers Name Role Phone Wendi Reyes Unavailable Unavailable Unavailable Reason for Referral No Reason for Referral was given. History of Present Illness No HPI available. 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 Encounters AUDIT 12/30/2012EST, Provider: MARTHA AQUINO, Status: Pen, Time: 8:30 AM 05/26/2013
--- OUTSIDE RECORDS SUMMARY | 2019-09-29 18:13 | XMS REPORT ---
[...] Directives No Advance Directives available. Encounters AUDIT 11/26/2012EST, Provider: MARTHA AQUINO, Status: Pen, Time: 8:30 AM 05/26/2013
--- OUTSIDE RECORDS SUMMARY | 2019-09-29 18:13 | XMS REPORT ---
:1980 Author Name Wendi Reyes Care Team Providers Name Role Phone Wendi Reyes Unavailable Unavailable Unavailable Reason for Referral No Reason for Referral was given. History of Present Illness No HPI available. 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 (Active)Biotin 5000 MCG Oral Capsule;TAKE 1 CAPSULE DAILY. (Active)Meloxicam 7.5 MG Oral Tablet;TAKE 1 TABLET TWICE DAILY NEEDED. (Active)Tirosint 112 MCG Oral Capsule;1 tablet daily; Start Date: 02/18/2013; End Date: (Active) Allergies and Adverse Reactions Latex Exam Gloves MISC;Itching;Rash (Active)Levaquin TABS;Other (Active) Past Medical History History ofSjogren's Syndrome (710.2); (Resolved)History of Supraventricular Tachycardia With Aberrant Conduction (427.89); (Resolved ) Family History Family history ofRenal Failure (Active)Family history ofHypothyroidism (Active) Social History Former Smoker (V15.82); (Active) Treatment Plan [L] dsDNA Ab, IgG w/RFX IFA Titer 12/30/2012 Routine[QL] TSH, 3RD GENERATION 02/18/2013 Routine[QL] T4, FREE 02/18/2013 Routine Advance Directives No Advance Directives available. Encounters AUDIT 02/18/2013EST, Provider: MARTHA AQUINO, Status: Pen, Time: 8:30 AM 05/26/2013
--- OUTSIDE RECORDS SUMMARY | 2019-09-29 18:14 | XMS REPORT | CCD ---
:1980 Author Organization [facility] Care Team Providers Name Role Phone Olga Pang Referring Provider Kayla Consulting Provider Allergies, Adverse Reactions, Alerts Substance Reaction Status Latex Active Levaquin Active Medications Medication Instructions Start Date End Date Status multivitamin Substitution Allowed, 12/18/2012 Ordere d Maintenance Fish Oil Substitution Allowed 12/18/2012 Ordered Flonase 0.05 mg/inh nasal Substitution Allowed, 12/18/2012 Ordered spray Maintenance biotin Substitution Allowed 12/18/2012 Ordered Levothroid 137 mcg (0.137 mg) Substitution Allowed 12/18/2012 Ordered oral tablet Ovcon 35 Substitution Allowed, 12/18/2012 Ordere d Maintenance Vital Signs Most recent to oldest [Reference Range]: 1 Temperature Oral [96.4-99.1 DegF] 98.4 DegF (12/18/2012 13:48:00) Systolic Blood Pressure [90-140 mmHg] 116 mmHg (12/18/2012 13:48:00) Diastolic Blood Pressure [60-90 mmHg] 70 mmHg (12/18/2012 13:48:00) Respiratory Rate [14-20 BRMIN] 16 BRMIN (12/18/2012 13:48:00) Peripheral Pulse Rate [60-100 bpm] 93 bpm (12/18/2012 13:48:00) Weight 67.273 kg (12/18/2012 13:48:00)
--- OUTSIDE RECORDS SUMMARY | 2019-09-29 18:14 | XMS REPORT ---
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 (Active)Biotin 5000 MCG Oral Capsule;TAKE 1 CAPSULE DAILY. (Active)Meloxicam 7.5 MG Oral Tablet;TAKE 1 TABLET TWICE DAILY NEEDED. (Active)Levothyroxine Sodium 137 MCG Oral Tablet (Active)Rogaine Mens 5 % External Foam (Active) Allergies and Adverse Reactions Latex Exam Gloves MISC;Itching;Rash (Active)Levaquin TABS;Other (Active) Past Medical History History ofSjogren's Syndrome (710.2); (Resolved)History of Supraventricular Tachycardia With Aberrant Conduction (427.89); (Resolved ) Family History Family history ofRenal Failure (Active)Family history ofHypothyroidism (Active) Social History Former Smoker (V15.82); (Active) Treatment Plan [L] dsDNA Ab, IgG w/RFX IFA Titer 12/30/2012 Routine[QLH] TSH, 3RD GENERATION 02/18/2013 Routine[QLH] T4, FREE 02/18/2013 Routine Advance Directives No Advance Directives available. Encounters AUDIT 05/26/2013EST, Provider: MARTHA AQUINO, Status: Pen, Time: 8:30 AM 12/08/2013
--- OUTSIDE RECORDS SUMMARY | 2019-09-29 18:14 | XMS REPORT | Continuity of Care Document ---
:1980 Author Organization [facility] Care Team Providers Name Role Phone MD Garza Luis Unavailable Unavailable Insurance Providers Payer name Policy type / Policy ID Covered libertarian ID Policy Hol cristin Coverage type [facility] Encounters Encounter Performer Location Date Lab Report Angus Garza MD [facility] Nov 18, 2013 Allergies, Adverse Reactions, Alerts Type Substance Reaction Status Drug allergy LEVAQUIN muscle tendon issue Active Environmental allergy LATEX Active Food allergy GLUTAN Active Problems Problem Effective Dates Problem Status PREVENTIVE HEALTH CARE Nov 07, 2013 Inactive CELIAC DISEASE Nov 07, 2013 Active UNSPECIFIED HYPOTHYROIDISM Nov 07, 2013 Active CONNECTIVE TISSUE DISEASE Nov 07, 2013 Active Procedures Date Description Comments Nov 07, 2013 smoking status Former smoker Oct 19, 2006 colonoscopy Complete Jan 19, 2013 vaginal Pap smear results Complete Medications Medication Instructions Start Date Status LEVOTHYROXINE SODIUM 137 MCG TABS 1 tab daily Nov 07, 2013 Active LEVOCARNITINE CAPS 1 caps twice day Nov 07, 2013 Active FAMOTIDINE 10 MG TABS 1 tab twice day Nov 07, 2013 Active FLONASE 50 MCG/ACT SUSP 1 spray in each nostrill twice Nov 07 014 Active day BIOTIN TABS 1 QD Nov 07, 2013 Active MULTIVITAMINS CAPS 1 caps daily Nov 07, 2013 Active FISH OIL CAPS Nov 07, 2013 Active Vital Signs Date Description Test Result Nov 07, 2013 height E&M HEIGHT 65 in Nov 07, 2013 weight E&M WEIGHT 145 lb Nov 07, 2013 temperature E&M TEMPERATURE 99.3 deg f Nov 07, 2013 pulse rate E&M PULSE RATE 78 /min Nov 07, 2013 blood pressure, systolic BP SYSTOLIC 102 mm Hg Nov 07, 2013 blood pressure, diastolic BP DIASTOLIC 64 mm Hg Results Date Description Test Name Value Reference Interpretation Sta tus Nov 07, hemoglobin, blood HGB 13.3 g/dL 12.0-16.0 2013Nov 07, hematocrit, blood HCT 39.5 % 36.0-48.0 2013Nov 07, platelet count PLATELETS 215 K/CMM 957-161 8038 /mm3 Brent 20, erythrocyte ESR 4 mm/hr 0-20 2013 sedimentation rate Nov 07, cholesterol, serum CHOLESTEROL 176 mg/dl <=199 2013Nov 07, triglyceride, TRIGLYCERIDE 114 mg/dl <=149 2013 serum, fasting Nov 07, HDL cholesterol, HDL 74 mg/dl >=61 2013 serum Nov 07, LDL cholesterol, LDL 79 mg/dl <=99 2013 serum Nov 07, sodium, serum SODIUM 138 MEQ/L [phone] mmol/L Nov 07, potassium, serum POTASSIUM 4.1 MEQ/L 3.5-5.1 2013 mmol/L Nov 07, creatinine, serum CREATININE 0.7 mg/dL 0.5-1.4 2013Nov 07, urea nitrogen, BUN 9 mg/dL 7-2013 blood Nov 07, urea BUN/CREAT 13 null 6-2013 nitrogen/creatinine ratio, serum Nov 07, albumin, serum ALBUMIN 4.2 g/dL 3.5-5.0 2013Nov 07, calcium, serum CALCIUM 8.8 mg/dL 8.5-10.5 2013Nov 07, alanine SGPT (ALT) 25 U/L 0-65 2013 aminotransferase (SGPT), serum Nov 07, aspartate SGOT (AST) 19 U/L 0-37 2013 aminotransferase (SGOT), serum Nov 07, alkaline ALK PHOS 75 U/L 39-136 2014 phosphatase, serum Nov 07, thyroid stimulating TSH 0.137 0.360-3.740 Low 2014 hormone, serum uIU/mL Nov 07, rapid plasma reagin RPR Non Non Reactive 2013 antibody, serum Reactive null Nov 07, antinuclear DENISSE Positive Negative Abnormal 2013 antibody null Jan 19, vaginal Pap smear PAP SMEAR Complete 2013 results null
--- OUTSIDE RECORDS SUMMARY | 2019-09-29 18:14 | XMS REPORT | Summary of Care ---
:1980 Author Organization [facility] - [facility] Address Unavailable , Encounter OMI Magallanes(FIN) [id number] Date(s): 08/06/18 - 08/06/18 [facility] [address] [place] [address], [address] [place] [address]- [place] [phone] Discharge Disposition: Home or Self Care Attending Physician: Olga Pang MD Referring Physician: Olga Pang MD Vital Signs No data available for this section Problem List Condition Effective Dates Status Health Status Informant Celiac disease1 11/07/13 Active Disorder of connective tissue2, 3, 4 11/07/13 Active Hyperthyroidism5 11/07/13 Active Screening - health check6 11/23/14 Active 1Data migrated from [employer] on 10/20/14.2Data migrated from [employer] on 12/23/14.3Data migrated from [employer] on 11/25/14.4Data migrated from [employer] on 10/20/14.5Data migrated from [employer] on 10/20/14.6Data migrated from [employer] on 12/23/14. Allergies, Adverse Reactions, Alerts Substance Reaction Severity Status levofloxacin1 Active Levaquin Active Latex2 Active 1Data migrated from [employer] on 09/17/14. Originally documented as LEVAQUIN. muscle tendon [id number] migrated from [employer] on 07/21/15. Originally documented as LATEX. Medications No data available for this section Results No data available for this section Immunizations No data available for this section Procedures No data available for this section Social History No data available for this section Assessment and Plan No data available for this section
--- OUTSIDE RECORDS SUMMARY | 2019-09-29 18:15 | XMS REPORT | Continuity of Care Document ---
:1980 Author Organization [facility] Care Team Providers Name Role Phone MD Kayla, Angus Unavailable Unavailable Insurance Providers Payer name Policy type / Policy ID Covered green party ID Policy Hol cristin Coverage type [facility] PLUS Encounters Encounter Performer Location Date Office Visit Angus Garza MD [facility] Nov 23, 2014 Allergies, Adverse Reactions, Alerts Type Substance Reaction Status Drug allergy LEVAQUIN muscle tendon issue Active Environmental allergy LATEX Active Food allergy GLUTAN Active Problems Problem Effective Dates Problem Status PREVENTIVE HEALTH CARE Nov 07, 2013 Inactive CELIAC DISEASE Nov 07, 2013 Active UNSPECIFIED HYPOTHYROIDISM Nov 07, 2013 Active CONNECTIVE TISSUE DISEASE Nov 07, 2013 Active PREVENTIVE HEALTH CARE Nov 23, 2014 Active Procedures Date Description Comments Nov 07, 2013 smoking status Former smoker Oct 19, 2006 colonoscopy Complete Jan 19, 2013 vaginal Pap smear results Complete Nov 23, 2014 smoking status Former smoker Medications Medication Instructions Start Date Status LEVOCARNITINE CAPS 1 caps twice day Nov 07, 2013 Active FAMOTIDINE 10 MG TABS 1 tab twice day Nov 07, 2013 Active FLONASE 50 MCG/ACT SUSP 1 spray in each nostrill twice Nov 07, 014 Active day BIOTIN TABS 1 QD Nov 07, 2013 Active MULTIVITAMINS CAPS 1 caps daily Nov 07, 2013 Active FISH OIL CAPS Nov 07, 2013 Active LEVOTHYROXINE SODIUM 150 MCG TABS one tab dialy Nov 07, 2013 Active HYDROCHLOROTHIAZIDE TABS One time daily Nov 23, 2014 Active PLAQUENIL 200 MG TABS two tabs once daily Nov 23, 2014 Active Vital Signs Date Description Test Result Nov 07, 2013 height E&M - 8302-2 HEIGHT 65 in Nov 07, 2013 weight E&M - 3141-9 WEIGHT 145 lb Nov 07, 2013 temperature E&M TEMPERATURE 99.3 deg f Nov 07, 2013 pulse rate E&M - 8867-4 PULSE RATE 78 /min Nov 07, 2013 blood pressure, systolic - 8480-6 BP SYSTOLIC 102 mm Hg Nov 07, 2013 blood pressure, diastolic - 8462-4 BP DIASTOLIC 64 mm Hg Nov 23, 2014 height E&M - 8302-2 HEIGHT 65 in Nov 23, 2014 weight E&M - 3141-9 WEIGHT 154 lb Nov 23, 2014 temperature E&M TEMPERATURE 98.0 deg f Nov 23, 2014 blood pressure, systolic - 8480-6 BP SYSTOLIC 121 mm Hg Nov 23, 2014 blood pressure, diastolic - 8462-4 BP DIASTOLIC 78 mm Hg Nov 23, 2014 pulse rate E&M - 8867-4 PULSE RATE 92 /min Results Date Description Test Name Value Reference Interpretation Sta tus Nov 07, hemoglobin, blood HGB 13.3 g/dL 12.0-16.0 2013Nov 07, hematocrit, blood HCT 39.5 % 36.0-48.0 2013Nov 07, platelet count PLATELETS 215 K/CMM 067-124 6794 /mm3 Nov 07, erythrocyte ESR 4 mm/hr 0-20 2013 sedimentation rate Nov 23, hemoglobin, blood HGB 13.8 g/dL 12.0-16.0 2014Nov 23, hematocrit, blood HCT 41.4 % 36.0-48.0 2014Nov 23, platelet count PLATELETS 213 K/CMM 900-093 5432 /mm3 Nov 23, erythrocyte ESR 2 mm/hr 0-20 2014 sedimentation rate Nov 07, cholesterol, serum CHOLESTEROL 176 mg/dl <=199 2013Nov 07, triglyceride, TRIGLYCERIDE 114 mg/dl <=149 2013 serum, fasting Nov 07, HDL cholesterol, HDL 74 mg/dl >=61 2013 serum Nov 07, LDL cholesterol, LDL 79 mg/dl <=99 2013 serum Nov 07, sodium, serum SODIUM 138 MEQ/L 629-518 8098 mmol/L Nov 07, potassium, serum POTASSIUM 4.1 MEQ/L 3.5-5.1 2013 mmol/L Nov 07, creatinine, serum CREATININE 0.7 mg/dL 0.5-1.4 2013Nov 07, urea nitrogen, BUN 9 mg/dL 7-22 2013 blood Nov 07, urea BUN/CREAT 13 null 6-25 2014 nitrogen/creatinine ratio, serum Nov 07, albumin, serum ALBUMIN 4.2 g/dL 3.5-5.0 2013Nov 07, calcium, serum CALCIUM 8.8 mg/dL 8.5-10.5 2013Nov 07, alanine SGPT (ALT) 25 U/L 0-65 2013 aminotransferase (SGPT), serum Nov 07, aspartate SGOT (AST) 19 U/L 0-37 2013 aminotransferase (SGOT), serum Nov 07, alkaline ALK PHOS 75 U/L 39-136 2013 phosphatase, serum Nov 07, thyroid stimulating TSH 0.137 0.360-3.740 Low 2013 hormone, serum uIU/mL Nov 23, cholesterol, serum CHOLESTEROL 170 mg/dl <=199 2014Nov 23, triglyceride, TRIGLYCERIDE 107 mg/dl <=149 2014 serum, fasting Nov 23, HDL cholesterol, HDL 83 mg/dl >=61 2014 serum Nov 23, LDL cholesterol, LDL 66 mg/dl <=99 2014 serum Nov 23, sodium, serum SODIUM 140 MEQ/L 406-420 1300 mmol/L Nov 23, potassium, serum POTASSIUM 3.9 MEQ/L 3.5-5.1 2014 mmol/L Nov 23, creatinine, serum CREATININE 0.8 mg/dL 0.5-1.4 2014Nov 23, urea nitrogen, BUN 12 mg/dL 7-22 2014 blood Nov 23, urea BUN/CREAT 15 null 6-25 2014 nitrogen/creatinine ratio, serum Nov 23, albumin, serum ALBUMIN 4.0 g/dL 3.5-5.0 2014Nov 23, calcium, serum CALCIUM 9.1 mg/dL 8.5-10.5 2014Nov 23, alanine SGPT (ALT) 25 U/L 0-65 2014 aminotransferase (SGPT), serum Nov 23, aspartate SGOT (AST) 22 U/L 0-37 2014 aminotransferase (SGOT), serum Nov 23, alkaline ALK PHOS 85 U/L 39-136 2014 phosphatase, serum Nov 23, thyroid stimulating TSH 0.206 0.360-3.740 Low 2014 hormone, serum uIU/mL Nov 07, rapid plasma reagin RPR Non Non Reactive 2013 antibody, serum Reactive null Nov 07, antinuclear DENISSE Positive Negative Abnormal 2013 antibody null Jan 19, vaginal Pap smear PAP SMEAR Complete 2012 results null
--- OUTSIDE RECORDS SUMMARY | 2019-09-29 18:15 | XMS REPORT | Continuity of Care Document ---
:1980 Author Organization [facility] Care Team Providers Name Role Phone MD Kayla, Angus Unavailable Unavailable Insurance Providers Payer name Policy type / Policy ID Covered alliance party ID Policy Hol cristin Coverage type [facility] PLUS Encounters Encounter Performer Location Date Office Visit Angus Garza MD [facility] Nov 23, 2014 Allergies, Adverse [...] 2013Nov 07, platelet count PLATELETS 215 K/CMM 792-242 2026 /mm3 Nov 07, erythrocyte ESR 4 mm/hr 0-20 2013 sedimentation rate Nov 07, cholesterol, serum CHOLESTEROL 176 mg/dl <=199 2013Nov 07, triglyceride, TRIGLYCERIDE 114 mg/dl <=149 2013 serum, fasting Nov 07, HDL cholesterol, HDL 74 mg/dl >=61 2013 serum Nov 07, LDL cholesterol, LDL 79 mg/dl <=99 2013 serum Nov 07, sodium, serum SODIUM 138 MEQ/L 288-146 6561 mmol/L Nov 07, potassium, serum POTASSIUM 4.1 MEQ/L 3.5-5.1 2013 mmol/L Nov 07, creatinine, serum CREATININE 0.7 mg/dL 0.5-1.4 2013Nov 07, urea nitrogen, BUN 9 mg/dL 7-22 2013 blood Nov 07, urea BUN/CREAT 13 null 6-25 2013 nitrogen/creatinine ratio, serum Nov 07, albumin, serum [...] rapid plasma reagin RPR Non Non Reactive 2014 antibody, serum Reactive null Nov 07, antinuclear DENISSE Positive Negative Abnormal 2014 antibody null Jan 19, vaginal Pap smear PAP SMEAR Complete 2013 results null
--- OUTSIDE RECORDS SUMMARY | 2019-09-29 18:16 | XMS REPORT ---
:1980 Author Organization [employer] Care Team Providers Name Role Phone Feng Bonilla Provider Role Unavailable Allergies No Known Allergies Problems Problem Type Condition Code Onset Dates Condition Statu s Problem Sicca syndrome, unspecified M35.00 Active Problem Nasal Airway Obstruction R0 Act lela Problem Influenza due to unidentified J11.1 Active influenza virus with other respiratory manifestations Problem Thrush Candidiasis B37.0 Active Problem Meniere's disease, bilateral H81.03 Active Problem Edema of larynx J38.4 Active Problem Allergic rhinitis, seasonal J30.2 Active Problem Hypertrophy of nasal turbinates J34.3 Active Problem Tinnitus, bilateral H93.13 Active Problem Chronic tonsillitis J35.01 Active Problem Hearing loss, Perceived- Bilateral H93.293 Active Problem Swelling, mass, lump in neck R22.1 Active Problem Chronic rhinitis J31.0 Active Problem Vertigo - Meniere's disease * 386.00 Active Problem Cough R05 Active Problem Acute pharyngitis J02.9 Active Problem Enlarged lymph nodes * 785.6 Activ e Problem Sinusitis - Chronic J32.8 Active Problem Postnasal drip R09.82 Active Problem Sialoadenitis, unspecified K11.20 A ctive Medications Medication Code System Code Instructions Start Date End Date Status Dosage Magic Mouthwash [facility] 93264-488 160cc Nystatin November 23, Active 10 ml #4 4-05 susp + 200cc 2017 Benadryl + 40cc Dexamethasone (0.5/5cc) + Doxycyxline 600mg Mouth/Throat Four times a day Results No Known Results Summary Purpose [employer] Submission
--- OUTSIDE RECORDS SUMMARY | 2019-09-29 18:16 | XMS REPORT ---
[...] unspecified K11.20 A ctive Medications Medication Code Code Instructions Start End Status Dosage System Date Date Spironolactone [facility] 03086594848 25 MG Orally Active 1 tablet Once a day with food Results No Known Results Summary Purpose [employer] Submission
--- OUTSIDE RECORDS SUMMARY | 2019-09-29 18:16 | XMS REPORT ---
[...] Problem Sialoadenitis, unspecified K11.20 A ctive Medications No Known Medications Results No Known Results Summary Purpose [employer] Submission
--- OUTSIDE RECORDS SUMMARY | 2019-09-29 18:16 | XMS REPORT ---
:1980 Author [facility] Team Providers Name Role Phone Feng Bonilla Provider Role Unavailable Allergies, Adverse Reactions, Alerts Substance Reaction Event Type Levaquin sensativity to medication Drug Allergy Problems Problem Type Condition Code Onset Dates Condition Statu s Problem Sicca syndrome, unspecified M35.00 Active Problem Nasal Airway Obstruction R0 Act lela Problem Influenza due to unidentified J11.1 Active influenza virus with other respiratory manifestations Problem Thrush Candidiasis B37.0 Active Assessment Thrush Candidiasis B37.0 Active Problem Meniere's disease, bilateral H81.03 Active Assessment Meniere's disease, bilateral H81.03 Active Assessment Edema of larynx J38.4 Active Problem Edema of larynx J38.4 Active [...] e Problem Sinusitis - Chronic J32.8 Active Assessment Chronic tonsillitis J35.01 Active Problem Postnasal drip R09.82 Active Problem Sialoadenitis, unspecified K11.20 A ctive Medications Medication Code Code Instructions Start End Status Dosage System Date Date Tamiflu [facility] 41690325953 75 MG Orally Jun 28, Active 1 capsu le Twice a day 2016 Spironolactone [facility] [address]-37 Active not defined Etodolac [facility] [address]-98 Active not defined Levothyroxine [facility] 99786001534 137 MCG Orally Active 1 tablet Sodium Once a day Otezla [facility] 46743157152 30 MG Orally Active 1 table t Twice a day Evoxac [facility] 55557980907 30 MG Orally Mar 15, Active 1 capsu le Once a day 2015 Plaquenil [place] 42219233588 200 MG Orally Active 1 ta blet Once a day with food or milk Diflucan [facility] 42246789277 150 MG Orally November Active 2 tab lets Once a weekl 2017 Claritin [facility] 76838708153 10 MG Orally Active 1 tabl et Once a day Magic Mouthwash [facility] [address]-08 160cc Nystatin November Act lela 10 ml #4 susp + 200cc , Benadryl + 40cc 2017 Dexamethasone (0.5/5cc) + Doxycyxline 600mg Mouth/Throat Four times a day Gabapentin NDC 0 Active not defined Aldactone [facility] 09201966885 25 Active TAKE ONE TABLET BY MOUTH DAILY Results No Known Results Summary Purpose [employer] Submission
--- OUTSIDE RECORDS SUMMARY | 2019-09-29 18:16 | XMS REPORT ---
:[address] [facility] t Address [address] [place] [address] Dr. Etienne [address] [place] [id number] Care Team Providers Name Role Phone MARTHA AQUINO M.D. Unavailable Unavailable Problems Condition Condition Condition Status Onset Resolution Last Treatin g Comments Name Details Category Date Date Treatment Clinician Date Sicca Sicca Problem Active syndrome, syndrome, unspecified unspecified Nasal Nasal Problem Active Airway Airway Obstruction Obstruction Influenza Influenza Problem Active due to due to unidentifie unidentifie d influenza d influenza virus with virus with other other respiratory respiratory manifestati manifestati ons ons Thrush Thrush Problem Active Candidiasis Candidiasis Meniere's Meniere's Problem Active disease, disease, bilateral bilateral Edema of Edema of Problem Active larynx larynx Allergic Allergic Problem Active rhinitis, rhinitis, seasonal seasonal Hypertrophy Hypertrophy Problem Active of nasal of nasal turbinates turbinates Tinnitus, Tinnitus, Problem Active bilateral bilateral Chronic Chronic Problem Active tonsillitis tonsillitis Hearing Hearing Problem Active loss, loss, Perceived- Perceived- Bilateral Bilateral Swelling, Swelling, Problem Active mass, lump mass, lump in neck in neck Chronic Chronic Problem Active rhinitis rhinitis Vertigo - Vertigo - Problem Active Meniere's Meniere's disease * disease * Cough Cough Problem Active Acute Acute Problem Active pharyngitis pharyngitis Enlarged Enlarged Problem Active lymph nodes lymph nodes * * Sinusitis - Sinusitis - Problem Active Chronic Chronic Postnasal Postnasal Problem Active drip drip Sialoadenit Sialoadenit Problem Active is, is, unspecified unspecified Deviated Deviated Problem Active nasal nasal septum septum Pain in Pain in Problem Active throat throat Chronic Chronic Problem Active laryngitis laryngitis (LPRD) (LPRD) Tinnitus, Tinnitus, Problem Active left ear left ear History of History of Problem Resolve Sjogrens Sjogrens d syndrome syndrome History of History of Problem Resolve 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 Raised Problem Active level of level of immunoglobu immunoglobu astrid astrid Olecranon Olecranon Problem Active bursitis bursitis Arthralgia Arthralgia Problem Active of multiple of multiple sites sites Lymph nodes Lymph nodes Problem Active enlarged enlarged Fatigue Fatigue Problem Active Normal Normal Problem Active routine routine physical physical examination examination Thyroid Thyroid Problem Active Nodule Nodule Need for Need for Problem Active influenza influenza vaccination vaccination Gastritis Gastritis Problem Active Hypothyroid Hypothyroid Problem Active ism ism Nontropical Nontropical Problem Active sprue sprue Cervical Cervical Problem Active radiculopat radiculopat hy, chronic hy, chronic Sinusitis, Sinusitis, Problem Active acute acute Wheezing Wheezing Problem Active Low serum Low serum Problem Active vitamin D vitamin D Low vitamin Low vitamin Problem Active B12 level B12 level Smoking Smoking Problem Active Allergies, Adverse Reactions, Alerts Allergy Name Allergy Status Severity Reaction(s) Onset Inactive Treat ing Comments Type Date Date Clinician Levaquin Adverse Active sensativity Reaction to medication Latex Exam drug Active Itching, Gloves MISC allergy Rash Levaquin drug Inactive Other TABS allergy clindamycin drug Active Rash, allergy Itching Medications Ordered Filled Start Stop Current Ordering Indication Dosage Frequency Signature Comments Components Medication Medication Date Date Medication? Clinician (SIG) Name Name Chanmasonx Chantix Yes MARTHA TAKE Starting Starting 02-10 WIRFEL DIRECTED 00:00: M.D. PER 0.5 MG X 11 0.5 MG X 11 00 PACKAGE & 1 MG X 42 & 1 MG X 42 INSTRUCT IO Oral Tablet Oral Tablet NS. Chantix Chantix Yes MARTHA Q0.5D TAKE 1 Continuing Continuing 02-10 WIRFEL TABLET 00:00: M.D. TWICE MG Oral MG Oral 00 DAILY. Tablet Tablet Plaquenil Plaquenil Yes TAKE 2 200 MG Oral 200 MG Oral 3-19 TABLETS Tablet Tablet 00:00: DAILY WITH 00 FOOD Azelastine Azelastine 2017-05 Yes Ernesto 1 puff i n HCl HCl 07-07 Aly each 00:00: nostril 00 Zantac Zantac 2017-05 Yes Ernesto 1 tablet 06-30 00:00: 00 Doxycycline Doxycycline 2017-05 2018- No Ernesto 1 tabl et Hyclate Hyclate 2-10 12-17 Aly 00:00: 00:00 00 :00 Spironolact Spironolact 2014-05 Yes 1 QD TAKE 1 one 25 MG one 25 MG 1-20 TABLET Oral Tablet Oral Tablet 00:00: DAILY. 00 Levothyroxi Levothyroxi Yes MARTHA 1 QD TAKE ON E ne Sodium ne Sodium 3-09 WIRFEL TABLET BY 137 MCG 137 MCG 00:00: M.D. MOUTH Oral Tablet Oral Tablet 00 DAILY Levocetiriz Levocetiriz Yes 1 Q0.5D TAKE 1 ine ine 9-19 TABLET Dihydrochlo Dihydrochlo 00:00: TWICE ride 5 MG ride 5 MG 00 DAILY Oral Tablet Oral Tablet Plaquenil Plaquenil Yes Ernesto 1 tablet Aly with food or milk Levothyroxi Levothyroxi Yes Ernesto 1 table t ne Sodium ne Sodium Aly Spironolact Spironolact Yes Ernesto 1 table t one one Aly with food Claritin Claritin Yes Ernesto 1 tablet Aly Flonase Flonase Yes Ernesto 2 sprays Aly in each nostril Etodolac Etodolac Yes Ernesto not Aly defined Centrum Centrum Yes 1 QD TAKE 1 Ultra Ultra TABLET Womens Oral Womens Oral DAILY. Tablet Tablet Etodolac Etodolac Yes 1 Q0.5D TAKE 1 200 MG Oral 200 MG Oral CAPSULE Capsule Capsule TWICE DAILY Doxycycline Doxycycline Yes Q0.5D TAKE 1 Hyclate 100 Hyclate 100 CAPSULE MG Oral MG Oral TWICE Capsule Capsule DAILY. Immunizations Ordered Immunization Name Filled Immunization Name Date Comments Flublok Quadrivalent 0.5 2019-05-05 Completed ML Intramuscular Solution 00:00:00 Prefilled Syringe Adacel 5-2-15.5 LF-MCG/0.5 2019-05-05 Completed Intramuscular Suspension 00:00:00 Fluzone Quadrivalent 0.5 2017-04-03 Completed ML Intramuscular 09:20:00 Suspension Influenza 2015-04-09 Completed 09:17:00 Vital Signs Vital Name Observation Time Observation Value Comments BP Systolic 2019-05-05 09:13:00 113 mm[Hg] Location: RU E; Position: Sitting BP Diastolic 2019-05-05 09:13:00 75 mm[Hg] Location: RU E; Position: Sitting Height 2019-05-05 09:13:00 66 [in_us] Weight 2019-05-05 09:13:00 145.8 [lb_av] Temperature 2019-05-05 09:13:00 98.1 [degF] Method: Oral Heart Rate 2019-05-05 09:13:00 89 /min Location: R Brachial Artery; Respiration Rate 2019-05-05 09:13:00 16 /min Quality: No rmal BP Systolic 2018-08-06 13:40:00 127 mm[Hg] Location: RL E; Position: Sitting BP Diastolic 2018-08-06 13:40:00 89 mm[Hg] Location: RL E; Position: Sitting Height 2018-08-06 13:40:00 66 [in_us] Weight 2018-08-06 13:40:00 155 [lb_av] Temperature 2018-08-06 13:40:00 98.4 [degF] Method: Oral Heart Rate 2018-08-06 13:40:00 83 /min Location: R Brachial Artery; Respiration Rate 2018-08-06 13:40:00 18 /min Quality: No rmal BP Systolic 2017-04-03 09:14:00 125 mm[Hg] Location: RU E; Position: Sitting BP Diastolic 2017-04-03 09:14:00 77 mm[Hg] Location: RU E; Position: Sitting Height 2017-04-03 09:14:00 66 [in_us] Weight 2017-04-03 09:14:00 157 [lb_av] Temperature 2017-04-03 09:14:00 98.8 [degF] Method: Oral Heart Rate 2017-04-03 09:14:00 96 /min Location: R Brachial Artery; Procedures and Interventions Procedure Date / Time Performed Performing Clinici an [QL] CBC (INCLUDES DIFF/PLT) 2019-05-05 00:00:00 [QL] CMP W/EGFR 2019-05-05 00:00:00 [QL] FERRITIN 2019-05-05 00:00:00 [QL] HEMOGLOBIN A1c 2019-05-05 00:00:00 [QL] VITAMIN B12 2019-05-05 00:00:00 [QL] VITAMIN D, 25-HYDROXY, LC/MS/MS 2019-05-05 00:00:00 [[facility]] T4, FREE 2019-05-05 00:00:00 [QLH] TSH, 3RD GENERATION 2019-05-05 00:00:00 [QLH] LIPID PANEL 2019-05-05 00:00:00 [H] IgA Subclasses 2019-05-05 00:00:00 [L] tTG IgA/G 2019-05-05 00:00:00 [QLH] VITAMIN B12 2018-08-07 00:00:00 [QLH] VITAMIN D, 25-HYDROXY, LC/MS/MS 2018-08-07 00:00:00 [QLH] CBC (INCLUDES DIFF/PLT) 2018-08-06 00:00:00 [QLH] FERRITIN 2018-08-06 00:00:00 [QLH] LIPID PANEL 2018-08-06 00:00:00 [QLH] T4, FREE 2018-08-06 00:00:00 [QLH] TSH, 3RD GENERATION 2018-08-06 00:00:00 [QLH] VITAMIN B12 2018-08-06 00:00:00 [QLH] VITAMIN D, 25-HYDROXY, LC/MS/MS 2018-08-06 00:00:00 [QLH] HEMOGLOBIN A1c 2018-08-06 00:00:00 XRAY Chest 2 views [id number] 2018-08-06 00:00:00 [QLH] HEMOGLOBIN A1c 2017-04-03 00:00:00 [QLH] TSH, 3RD GENERATION 2017-04-03 00:00:00 [QLH] T4, FREE 2017-04-03 00:00:00 [QLH] VITAMIN D, 25-HYDROXY, LC/MS/MS 2017-04-03 00:00:00 Plan of Care Planned Activity Planned Date Comments Encounters Start End Encounter Admission Attending Care Care Encounter Date/Time Date/Time Type Type Clinicians Facility Department ID 2019-05-05 2019-05-05 Appointment PIPPA AQUINO Multispecialty [id number] 08:45:00 08:45:00 ; MARTHA AQUINO M.D. - Herman THOMAS M.D. 2018-08-06 2018-08-06 Appointment PIPPA AQUINO Endocrinology [id number] 13:45:00 13:45:00 ; MARTHA AQUINO M.D. - Latia THOMAS M.D. [facility] 2018-05-10 2018-05-10 Outpatient [place] [id number] 11:04:00 11:04:00 [facility] 2018-05-06 2018-05-06 [facility] [id number] 10:30:00 10:30:00 [facility] 2018-04-29 2018-04-29 [facility] [id number] 10:40:00 10:40:00 [facility] 2018-04-22 2018-04-22 [facility] [id number] 14:00:00 14:00:00 [facility] 2018-04-02 2018-04-02 Appointment PIPPA AQUINO [facility] [id number] 09:15:00 09:15:00 ; MARTHA AQUINO M.D. KELLY, M.D. 2018-01-18 2018-01-18 [facility] [id number] 13:48:00 13:48:00 [facility] 2017-12-26 2017-12-26 [facility] [id number] 14:13:00 14:13:00 [facility] 2017-12-14 2017-12-14 [facility] [id number] 15:00:00 15:00:00 [facility] 2017-12-07 2017-12-07 [facility] [id number] 10:49:00 10:49:00 [facility] 2017-11-28 2017-11-28 [facility] [id number] 15:02:00 15:02:00 [facility] 2017-11-23 2017-11-23 [facility] [id number] 14:49:00 14:49:00 [facility] 2017-11-23 2017-11-23 [facility] [id number] 11:15:00 11:15:00 [facility] 2017-11-22 2017-11-22 [facility] [id number] 14:03:00 14:03:00 [facility] 2017-04-03 2017-04-[address] [facility] [id number] 09:00:00 09:00:00 ; MARTHA AQUINO M.D. Specialty KELLY, M.D. 2016-09-25 2016-09-25 Appointment PIPPA AQUINO [facility] [id number] 08:30:00 08:30:00 ; MARTHA AQUINO M.D. KELLY, M.D. 2016-03-28 2016-03-28 Appointment PIPPA AQUINO [facility] [id number] 08:45:00 08:45:00 ; MARTHA AQUINO M.D. KELLY, M.D. 2015-09-28 2015-09-28 Appointment PIPPA AQUINO [facility] [id number] 08:45:00 08:45:00 ; MARTHA AQUINO M.D. KELLY, M.D. 2015-04-09 2015-04-09 Appointment PIPPA AQUINO [facility] [id number] 08:30:00 08:30:00 ; MARTHA AQUINO M.D. KELLY, M.D. Results Test Description Test Time Test Comments Text Results Atomic Results Result Comments [[facility]] CBC (INCLUDES DIFF/PLT) 2019-05-05 10:05:01 Test Item Value Reference Range Comments WBC; Below Low Threshold (test code = 6690-2) 3.4 {K/CMM} 3. 7-10.4 RBC; Below Low Threshold (test code = 789-8) 3.78 {M/CMM} 4.2 0-5.40 Hgb (test code = 718-7) 13.0 g/dl 12.0-16.0 Hct (test code = 79440-4) 37.4 % 36.0-48.0 MCV; Above High Threshold (test code = 787-2) 99.1 fL 80 .0-98.0 MCH; Above High Threshold (test code = 785-6) 34.4 pg 27 .0-31.0 MCHC (test code = 786-4) 34.7 g/dl 32.0-36.0 RDW (test code = 788-0) 13.0 % 11.5-14.5 Platelet (test code = 21245-7) 193 {K/CMM} 133-450 Mean Platelet Volume (test code = 21024-1) 9.2 fL 7.4-1 0.4 [[facility]] [id number] 10:05:01 Test Item Value Reference Range Comments Segmented Neutrophils (test code = 10053-9) 49.0 % 45.0 -75.0 Monocytes (test code = 32855-4) 12.0 % 2.0-12.0 Lymphocytes (test code = 24992-6) 33.8 % 20.0-40.0 Eosinophils; Above High Threshold (test code = 4.5 % 0 .0-4.0 87725-4) Basophils (test code = 706-2) 0.7 % 0.0-1.0 Segs-Bands # (test code = 33687-5) 1.7 {K/CMM} 1.5-8.1 Lymphocytes # (test code = 73193-0) 1.1 {K/CMM} 1.0-5.5 Monocytes # (test code = 72444-8) 0.4 {K/CMM} 0.0-0.8 Eosinophils # (test code = 73153-7) 0.2 {K/CMM} 0.0-0.5 [QL] HEMOGLOBIN [id number] 10:05:01 Test Item Value Reference Range Comments Hemoglobin A1c (test code = 4548-4) 4.6 % <=5.6 [QL] CMP [id number] 10:05:01 Test Item Value Reference Range Comments Sodium Level (test code 139 {mEq/l} 135-145 = 2951-2) Potassium Level (test 4.1 {mEq/l} 3.5-5.1 code = 2823-3) Chloride Level (test 107 {mEq/l} 95-109 code = 2075-0) Carbon Dioxide (test 26 {mEq/l} 24-32 code = 8-9) AGAP (test code = 10.1 {mEq/l} 10.0-20.0 48367-6) Glucose Lvl (test code 82 mg/dl 70-99 Adult ref erence range values = 2345-7) reflect the clin ical guidelinesof the [place] [employer] tion. Creatinine Lvl (test 0.80 mg/dl 0.50-1.40 code = 2160-0) Blood Urea Nitrogen 11 mg/dl 7-22 (test code = 3094-0) BUN/Creatinine Ratio 14 6-25 (test code = 3097-3) Total Protein (test 6.8 g/dl 6.4-8.4 code = 2885-2) Albumin Lvl (test code 4.0 g/dl 3.5-5.0 = 1751-7) Globulin (test code = 2.8 g/dl 2.7-4.2 97474-7) A/G Ratio (test code = 1.4 0.7-1.6 1759-0) Calcium Level Total 8.9 mg/dl 8.5-10.5 (test code = 74625-6) ALT (test code = 25 u/l 0-65 1743-4) AST (test code = 19 u/l 0-37 06253-9) Bili Total (test code = 0.5 mg/dl 0.2-1.3 1974-2) Alk Phos (test code = 71 u/l 39-136 The [facility] wan reference ranges 1783-0) for this test re present a CLSI-basedtransf erence of the CALIPER database of pediatric reference interv als to the[facility] CityWanderata analyzer (Clinical Bioche franky 46 (2013): 1197-121 9). [facility] Last 2 Left has not internally validated these referenceranges and therefore they should be u sed only in the context of a thoroughclinical assessment. eGFR (test code = 93 {ML/MIN/1.7} The eGFR is ca lculated using 62690-9) the CKD-EPI form surjit. In most young, healthyin dividuals the eGFR will be >90 mL/min/1.73m2. T he eGFR declines with ag e. AneGFR of 60-89 may be nor mal in some populations, par ticularly the elderly, forwhom the CKD-EPI formula has not been extensively carmen dated. Use of the eGFR isnot r ecommended in the following populations:Estrellita viduals with unstable creatin ine concentrations, including patients and those with serious co- morbid conditions.Patie nts with extremes in musc le mass or diet.The data ab ove are obtained from th e National Kidney Disease E ducation Program(NKDEP) w [facility] additionally rec ommends that when the eGFR is used in patientswith ext remes of body mass index for p urposes of drug dosing, the eGFR shouldbe multiplied by th e estimated BMI. [QLH] [id number] 10:05:01 Test Item Value Reference Range Comments Ferritin Lvl (test code = 2276-4) 152 ng/ml 5-204 [QLH] LIPID [id number] 10:05:01 Test Item Value Reference Range Comments Chol (test code = 2093-3) 194 mg/dl <=199 Trig (test code = 2571-8) 86 mg/dl <=149 HDL Cholesterol (test code = 2085-9) 84 mg/dl >=61 CHD Risk; Below Low Threshold (test code = 2.31 3.90- 5.80 46641-3) LDL (test code = 82995-3) 93 mg/dl <=99 VLDL (test code = VLDL) 17 [QLH] T4, [id number] 10:05:01 Test Item Value Reference Range Comments T4 Free (test code = 3024-7) 1.32 ng/dl 0.76-1.46 [QLH] TSH, 3RD [id number] 10:05:01 Test Item Value Reference Range Comments TSH (test code = 87448-7) 0.747 {uIU/ml} 0.360-3.740 [QLH] VITAMIN [id number] 10:05:01 Test Item Value Reference Range Comments Vitamin B12 Level (test code = 2132-9) 680 pg/ml 254-1320 [QLH] VITAMIN D, 25-HYDROXY, LC/MS/[id number] 10:05:01 Test Item Value Reference Range Comments Vitamin D, 25-OH, Total 44.0 ng/ml 30.0-100.0 Referenc e range is based on (test code = Vitamin D, recommen dations in the 25-OH, Total) [facility] Clinical Practice Guideli lucius (J Clin Endocrinol Tavon4226;96:191 1-1930) [QLH] TISSUE TRANSGLUTAMINASE ANTIBODY, [id number] 10:05:01 Test Item Value Reference Range Comments Tissue Transglutaminase (tTG) IgA (test code = 1.2 U/ml < =14.9 88595-7) [H] tTG, [id number] 10:05:01 Test Item Value Reference Range Comments Tissue Transglutaminase (tTg) IgG (test code = 11.9 U/ml < =14.9 52234-3) [H] IgA [id number] 10:05:01 Test Item Value Reference Range Comments IgA Lvl (test code = 2458-8) 213 mg/dl 87-352 IgA Subclass 1 (test code = 156.5 mg/dl 73.2-301.2 IgA Subclass 1) IgA Subclass 2 (test code = 47.4 mg/dl 13.4-97.9 Perf ormed At: [facility] IgA Subclass 2) [place] [address] [place], [place] [id number] florida Avilez MD Ph:[phone] formed At: [facility] [address] [id number] K yle L MD Ph:[phone] XRAY Chest 2 views [id number] 14:57:00EXAM: XR CHEST 2 VIEWSDATE: 08/06/2018 14:57 CDTINDICATION: - Z00.00 Encounter for general adult medical examination withoutabnormal findings; R06.2 Wheezing. History of prior fissurectomy undergeneral anesthesia on 07/01/2018 with coughing and wheezing since that time.COMPARISON: NoneTECHNIQUE: PAand lateral chest radiographs with abdominal shielding in placeFINDINGS: No lung parenchymal or pleural abnormalities are seen. Lazara andpulmonary vasculature are normal. Cardiomediastinal silhouette is normal inappearance. No acute bony abnormality is identified.IMPRESSION: No acute cardiopulmonaryabnormality. No radiographic evidence ofpneumonia.--Read by: Caleb Sage MDDictated Date/time: 08/06/18 15:41Electronically Signed by: Caleb Sage MD 08/06/1914:42FINAL REPORT[[facility]] CBC (INCLUDES DIFF/PLT)2018-08-06 14:37:01 Test Item Value Reference Range Comments WBC (test code = 6690-2) 4.7 {K/CMM} 3.7-10.4 RBC; Below Low Threshold (test code = 789-8) 3.82 {M/CMM} 4.2 0-5.40 Hgb (test code = 718-7) 13.3 g/dl 12.0-16.0 Hct (test code = 40745-9) 39.3 % 36.0-48.0 MCV; Above High Threshold (test code = 787-2) 102.9 fL 80 .0-98.0 MCH; Above High Threshold (test code = 785-6) 34.9 pg 27 .0-31.0 MCHC (test code = 786-4) 33.9 g/dl 32.0-36.0 RDW (test code = 788-0) 13.1 % 11.5-14.5 Platelet (test code = 57981-2) 201 {K/CMM} 133-450 Mean Platelet Volume (test code = 96715-6) 8.9 fL 7.4-1 0.4 [QL] [id number] 14:37:01 Test Item Value Reference Range Comments Segmented Neutrophils (test code = 57365-8) 63.3 % 45.0 -75.0 Monocytes (test code = 16042-5) 9.9 % 2.0-12.0 Lymphocytes (test code = 21193-4) 24.4 % 20.0-40.0 Eosinophils (test code = 07878-1) 2.0 % 0.0-4.0 Basophils (test code = 706-2) 0.4 % 0.0-1.0 Segs-Bands # (test code = 28432-7) 3.0 {K/CMM} 1.5-8.1 Lymphocytes # (test code = 43134-0) 1.2 {K/CMM} 1.0-5.5 Monocytes # (test code = 26488-3) 0.5 {K/CMM} 0.0-0.8 Eosinophils # (test code = 46342-0) 0.1 {K/CMM} 0.0-0.5 [QL] [id number] 14:37:01 Test Item Value Reference Range Comments Ferritin Lvl; Above High Threshold (test code = 281 ng/ml 2275-4) [QL] LIPID [id number] 14:37:01 Test Item Value Reference Range Comments Chol (test code = 2093-3) 191 mg/dl <=199 Trig (test code = 2571-8) 122 mg/dl <=149 HDL Cholesterol (test code = 2085-9) 87 mg/dl >=61 CHD Risk; Below Low Threshold (test code = 2.20 3.90- 5.80 41356-6) LDL (test code = 99274-2) 80 mg/dl <=99 VLDL (test code = VLDL) 24 [QLH] T4, [id number] 14:37:01 Test Item Value Reference Range Comments T4 Free (test code = 3024-7) 1.31 ng/dl 0.76-1.46 [QLH] TSH, 3RD [id number] 14:37:01 Test Item Value Reference Range Comments TSH (test code = 42384-3) 0.658 {uIU/ml} 0.360-3.740 [QLH] VITAMIN [id number] 14:37:01 Test Item Value Reference Range Comments Vitamin B12 Level; Below Low Threshold (test code 224 pg/ml 254-1320 = 2132-9) [QLH] HEMOGLOBIN [id number] 14:37:01 Test Item Value Reference Range Comments Hemoglobin A1c (test code = 4548-4) 4.9 % <=5.6 [QLH] VITAMIN D, 25-HYDROXY, LC/MS/[id number] 14:37:01 Test Item Value Reference Range Comments Vitamin D, 25-OH, Total 19.6 ng/ml 30.0-100.0 Referenc e range is based on (test code = Vitamin D, recommen dations in the 25-OH, Total) [facility]ociety Clinical Practice Guideli ne (J Clin Endocrinol Dglhh8026;96:191 1-1930) GASTRIC EMPTYING STUDY, SOLID 4 [id number] 17:01:00Reason for Exam:->t18.2xxaFINAL REPORT PROCEDURE: GASTRIC EMPTYING STUDY with Solids/Consensus Standard Protocol CPT CODE: 16505 INDICATION: Foreign body in the stomach. Intermittent stomach pain PROTOCOL: 0.53 mCi of Tc-99m sulfur colloid was administered in a non- standard meal.(The patient declined the bread portion of the meal.) Serial images of the upper abdomen were obtained in the anterior and posterior projections in the standing position at start and 1, 2, and 3 hours after tracer administration. Gastric retention of tracer was calculated by the geometric mean method.FINDINGS: There is progressive emptying of gastric contents into the small bowel. Gastric retention of tracer was 8%, 4%, 2% at 1, 2, and 3 hours respectively. (Reference values are <90%, <60%, and <30% at 1, 2, and 3 hours.) IMPRESSION: 1. Normal gastric emptying of a solid meal using a non-standard protocol (as described above). Signed: Christopher Toney Verified Date/Time: 01/14/2018 17:01:13 Reading Location: [address] Reading Room MR, BRAIN, WITHOUT [id number] 15:04:00FINAL REPORT MRI brain without contrast 05/15/2017 2:52 PM CLINICAL INDICATION: Neuro deficit(s), subacute TECHNIQUE: Multiplanar, multisequence MR imaging of the brain was performed utilizing the following imaging sequences: Axial T1, T2, FLAIR, GRE, and DWI; sagittal and coronal T1- weighted images. COMPARISON: None available FINDINGS: There is no infarct, hematoma, mass, extra-axial collection, or hydrocephalus. Normal appearing flow-voids are present in the major intracranial vascular structures. The sellar and pineal regions are normal. The craniovertebral junction is intact. The orbits, face, and skull base are without worrisome finding. IMPRESSION: Unremarkable noncontrast examination. Signed: Jeff John Verified Date/Time: 05/15/2017 15:04:21 Reading Location: [facility] Reading Room [[facility]] HEMOGLOBIN [id number] 09:56:01 Test Item Value Reference Range Comments Hemoglobin A1c (test code = 4548-4) 4.6 % <=5.6 [[facility]] VITAMIN D, 25-HYDROXY, LC/[id number] 09:56:01 Test Item Value Reference Range Comments Vitamin D, 25-OH, Total 27.1 ng/ml 30.0-100.0 Referenc e range is based on (test code = Vitamin D, recommen dations in the 25-OH, Total) [facility] Guideli ne (J Clin Endocrinol Ydmqr1395;96:191 1-1930) [[facility]] T4, [id number] 09:56:01 Test Item Value Reference Range Comments T4 Free (test code = T4 Free) 1.41 ng/dl 0.76-1.46 [QL] TSH, 3RD [id number] 09:56:01 Test Item Value Reference Range Comments TSH (test code = 57681-9) 0.641 {uIU/ml} 0.360-3.740 MR, SPINE, CERVICAL, WITHOUT [id number] 14:59:00FINAL REPORT MRI of the cervical spine Comparison: None Reason for e xam: Upper lymph node numbness Discussion: Sagittal and axial multisequence MR imaging of the cervical spine was provided Skull base to C3: Negative C 3/4: Negative C4/5: Mild disc desiccation butno canal or foraminal stenosis. C 5/6: Moderate spondylosis with relative canal narrowing. No significant stenosis. Right foramen is patent. Moderate left-sided osseous foraminal stenosis. C6/7: Negative C7/T1: Negative The visualized posterior fossa contents and cord are unremarkable. Marrow is unremarkable. The prevertebral soft tissues are within normal limits. Impressions: Chronic spine changes as discussed with no significant central canal stenosis. Left osseous foraminal stenosis C5/6. Signed: Lucía [place] Verified Date/Time: 03/09/2017 14:59:02 Reading Location: [facility] Consult Reading Room
--- OUTSIDE RECORDS SUMMARY | 2019-09-29 18:17 | XMS REPORT ---
:1980 [facility] Team Providers Name Role Phone Ernesto Aly Provider Role Unavailable Allergies, Adverse Reactions, Alerts Substance Reaction Event Type Levaquin sensativity to medication Drug Allergy Problems Problem Type Condition Code Onset Dates Condition Statu s Assessment Sinusitis - Chronic J32.8 Active Assessment Postnasal drip R09.82 Active Assessment Allergic rhinitis due to pollen J30.1 Active Assessment Cough R05 Active Assessment Nasal congestion R09.81 Active Problem Hearing loss, Perceived- Bilateral H93.293 Active Problem Chronic rhinitis J31.0 Active Problem Vertigo - Meniere's disease * 386.00 Active Problem Swelling, mass, lump in neck R22.1 Active Problem Meniere's disease, bilateral H81.03 Active Problem Tinnitus, bilateral H93.13 Active Problem Enlarged lymph nodes * 785.6 Activ e Problem Edema of larynx J38.4 Active Problem Postnasal drip R09.82 Active Problem Thrush Candidiasis B37.0 Active Problem Tinnitus, left ear H93.12 Active Problem Pain in throat R07.0 Active Problem Acute pharyngitis J02.9 Active Problem Cough R05 Active Problem Sinusitis - Chronic J32.8 Active Problem Sinusitis - Chronic J32.8 Active Problem Deviated nasal septum J34.2 Active Problem Hypertrophy of nasal turbinates J34.3 Active Problem Chronic laryngitis (LPRD) J37.0 Ac tive Problem Cough R05 Active Assessment Eustachian tube dysfunction, H69.83 Active bilateral Problem Sialoadenitis, unspecified K11.20 A ctive Assessment Hearing loss - Perceived H93.293 Act lela Problem Influenza due to unidentified J11.1 Active influenza virus with other respiratory manifestations Problem Postnasal drip R09.82 Active Problem Sicca syndrome, unspecified M35.00 Active Problem Allergic rhinitis, seasonal J30.2 Active Problem Chronic tonsillitis J35.01 Active Problem Nasal Airway Obstruction R0 Act lela Problem Hypertrophy of nasal turbinates J34.3 Active Medications Medication Code Code Instructions Start End Status Dosage System Date Date Plaquenil [facility] 53741467965 200 MG Orally Active 1 ta blet Once a day with food or milk Levothyroxine [facility] 47057603366 137 MCG Orally Active 1 tablet Sodium Once a day Spironolactone [facility] 59967181800 25 MG Orally Active 1 tablet Once a day with food Magic Mouthwash [facility] [address]-74 160cc Nystatin November Act lela 10 ml #4 susp 200cc 06, Benadryl 40cc 2017 Dexamethasone (0.5/5cc) Doxycyxline 600mg Mouth/Throat Four times a day Claritin [facility] 60353784966 10 MG Orally Active 1 tabl et Once a day Flonase [facility] 54501063497 50 MCG/ACT Active 2 sprays Nasally Once a in each day nostril Etodolac [facility] [address]-69 Active not defined Magic Mouthwash [facility] [address]-77 160cc Nystatin November Act lela 10 ml #4 susp 200cc 06, Benadryl 40cc 2017 Dexamethasone (0.5/5cc) Doxycyxline 600mg Mouth/Throat Four times a day Results No Known Results Summary Purpose eClinicalWorks Submission
--- OUTSIDE RECORDS SUMMARY | 2019-09-29 18:17 | XMS REPORT ---
:1980 Author Organization eClinicalWorks Care Team Providers Name Role Phone Ernesto Aly Provider Role Unavailable Allergies, Adverse Reactions, Alerts Substance Reaction Event Type Levaquin sensativity to medication Drug Allergy Problems Problem Type Condition Code Onset Dates Condition Statu s Assessment Otalgia, bilateral H92.03 Active Assessment Acute serous otitis media, H65.03 A ctive bilateral Assessment Sinusitis - Chronic J32.8 Active Assessment Pain in throat R07.0 Active Problem Hearing loss, Perceived- Bilateral H93.293 Active Problem Chronic rhinitis J31.0 Active Problem Vertigo - Meniere's disease * 386.00 Active Problem Swelling, mass, lump in neck R22.1 Active Problem Enlarged lymph nodes * 785.6 Activ e Problem Tinnitus, bilateral H93.13 Active Problem Edema of larynx J38.4 Active Problem Sinusitis - Chronic J32.8 Active Problem Thrush Candidiasis B37.0 Active Problem Hypertrophy of nasal turbinates J34.3 Active Problem Postnasal drip R09.82 Active Problem Sinusitis - Chronic J32.8 Active Problem Tinnitus, left ear H93.12 Active Problem Postnasal drip R09.82 Active Problem Acute pharyngitis J02.9 Active Problem Chronic laryngitis (LPRD) J37.0 Ac tive Problem Cough R05 Active Problem Cough R05 Active Problem Deviated nasal septum J34.2 Active Problem Pain in throat R07.0 Active Problem Chronic laryngitis (LPRD) J37.0 Ac tive Assessment Chronic laryngitis (LPRD) J37.0 Ac tive Problem Influenza due to unidentified J11.1 Active influenza virus with other respiratory manifestations Assessment Postnasal drip R09.82 Active Problem Nasal Airway Obstruction R0 Act lela Problem Sicca syndrome, unspecified M35.00 Active Problem Sialoadenitis, unspecified K11.20 A ctive Problem Chronic tonsillitis J35.01 Active Problem Meniere's disease, bilateral H81.03 Active Problem Hypertrophy of nasal turbinates J34.3 Active Problem Allergic rhinitis, seasonal J30.2 Active Medications Medication Code Code Instructions Start End Status Dosage System Date Date Etodolac [facility] [address]-66 Active not defined Plaquenil [facility] 40514393444 200 MG Orally Active 1 ta blet Once a day with food or milk Flonase [facility] 56142978071 50 MCG/ACT Active 2 sprays Nasally Once a in each day nostril Doxycycline [facility] 93277212493 100 MG Orally Dec 10, Dec Active 1 tablet Hyclate twice a day 2017 Levothyroxine [facility] 02683559124 137 MCG Orally Active 1 tablet Sodium Once a day Spironolactone [facility] 76623819037 25 MG Orally Active 1 tablet Once a day with food Zantac [facility] 66905644524 150 MG Orally Dec 10, Active 1 tabl et Twice a day 2017 Claritin [facility] 16322317765 10 MG Orally Active 1 tabl et Once a day Medrol (Aaron) [facility] 62444367178 4 MG Orally Dec 10, Dec Active as 2017 Magic Mouthwash [facility] [address]-02 160cc Nystatin November Act lela 10 ml #4 susp 200cc 06, Benadryl 40cc 2017 Dexamethasone (0.5/5cc) Doxycyxline 600mg Mouth/Throat Four times a day Results No Known Results Summary Purpose eClinicalWorks Submission
--- OUTSIDE RECORDS SUMMARY | 2019-09-29 18:17 | XMS REPORT ---
:1980 Author Organization eClinicalWorks Care Team Providers Name Role Phone Ladonna Madden Provider Role Unavailable Allergies No Known Allergies Problems Problem Type Condition Code Onset Dates Condition Statu s Problem Chronic rhinitis J31.0 Active Problem Vertigo - Meniere's disease * 386.00 Active Problem Chronic tonsillitis J35.01 Active Problem Hearing loss, Perceived- Bilateral H93.293 Active Problem Tinnitus, bilateral H93.13 Active Problem Swelling, mass, lump in neck R22.1 Active Problem Meniere's disease, bilateral H81.03 Active Problem Edema of larynx J38.4 Active Problem Thrush Candidiasis B37.0 Active Problem Pain in throat R07.0 Active Problem Postnasal drip R09.82 Active Problem Cough R05 Active Problem Postnasal drip R09.82 Active Problem Cough R05 Active Problem Enlarged lymph nodes * 785.6 Activ e Problem Chronic laryngitis (LPRD) J37.0 Ac tive Problem Tinnitus, left ear H93.12 Active Problem Hypertrophy of nasal turbinates J34.3 Active Problem Deviated nasal septum J34.2 Active Problem Sialoadenitis, unspecified K11.20 A ctive Problem Sicca syndrome, unspecified M35.00 Active Problem Acute pharyngitis J02.9 Active Problem Sinusitis - Chronic J32.8 Active Problem Hypertrophy of nasal turbinates J34.3 Active Problem Allergic rhinitis, seasonal J30.2 Active Problem Influenza due to unidentified J11.1 Active influenza virus with other respiratory manifestations Problem Nasal Airway Obstruction R0 Act lela Medications Medication Code Code Instructions Start End Date Status Dosage System Date Azithromycin [facility] 83417436559 250 MG Orally Dec 27, Jan 01, Active 2 tablets Once a day 2017 2017 on the first day, then 1 tablet daily for 4 days Results No Known Results Summary Purpose eClinicalWorks Submission
--- OUTSIDE RECORDS SUMMARY | 2019-09-29 18:17 | XMS REPORT ---
:1980 [facility] [place] [facility] Team Providers Name Role Phone Ladonna Madden Provider Role Unavailable Allergies, Adverse Reactions, Alerts Substance Reaction Event Type Levaquin sensativity to medication Drug Allergy Problems Problem Type Condition Code Onset Dates Condition Statu s Assessment Hypertrophy of nasal turbinates J34.3 Active Assessment Deviated nasal septum J34.2 Active Assessment Pain in throat R07.0 Active Assessment Postnasal drip R09.82 Active Assessment Edema of larynx J38.4 Active Assessment Cough R05 Active Assessment Chronic laryngitis (LPRD) J37.0 Ac tive Problem Chronic rhinitis J31.0 Active Problem Vertigo [...] Active Problem Sialoadenitis, unspecified K11.20 A ctive Assessment Tinnitus, left ear H93.12 Active Problem Sicca syndrome, unspecified M35.00 Active [...] End Status Dosage System Date Date Spironolactone [facility] 49199686946 25 MG Orally Active 1 tablet Once a day with food Etodolac [facility] [address]-41 Active not defined Diflucan [facility] 18139482252 100 MG Orally November Active 1 tab let Three times a 27, 10, Week 2017 2017 Magic Mouthwash [facility] [address]-90 160cc Nystatin November Act lela 10 ml #4 susp 200cc 06, Benadryl 40cc 2017 Dexamethasone (0.5/5cc) Doxycyxline 600mg Mouth/Throat Four times a day Magic Mouthwash [facility] [address]-53 160cc Nystatin November Act lela 10 ml #4 susp 200cc 06, Benadryl 40cc 2017 Dexamethasone (0.5/5cc) Doxycyxline 600mg Mouth/Throat Four times a day Levothyroxine [facility] 54163478511 137 MCG Orally Active 1 tablet Sodium Once a day Plaquenil [facility] 34782513393 200 MG Orally Active 1 ta blet Once a day with food or milk Results No Known Results Summary Purpose eClinicalWorks Submission
--- OUTSIDE RECORDS SUMMARY | 2019-09-29 18:17 | XMS REPORT ---
[...] Obstruction R0 Act lela Medications Medication Code System Code Instructions Start Date End Date Status Dosage Aldactone [facility] 42752989230 25 MG Orally once Jan 18, Feb 17, Active 1 tablet per day with food 2017 2017 Results No Known Results Summary Purpose eClinicalWorks Submission
--- OUTSIDE RECORDS SUMMARY | 2019-09-29 18:18 | XMS REPORT ---
:1980 Author Organization eClinicalWorks Care Team Providers Name Role Phone Ernesto Aly Provider Role Unavailable Allergies, Adverse Reactions, Alerts Substance Reaction Event Type Levaquin sensativity to medication Drug Allergy Problems Problem Type Condition Code Onset Dates Condition Statu s Assessment Edema of larynx J38.4 Active Assessment Sinusitis - Chronic J32.8 Active Assessment Cough R05 Active Assessment Postnasal drip R09.82 Active Problem Hearing loss, Perceived- Bilateral H93.293 [...] Chronic laryngitis (LPRD) J37.0 Ac tive Assessment Hypertrophy of nasal turbinates J34.3 Active Problem Influenza due to unidentified J11.1 Active influenza virus with other respiratory manifestations Assessment Allergic rhinitis, seasonal J30.2 Active Problem Nasal Airway Obstruction R0 Act lela Problem Sicca syndrome, unspecified M35.00 Active Problem Sialoadenitis, unspecified K11.20 A ctive Problem Chronic tonsillitis J35.01 Active Problem Meniere's disease, bilateral H81.03 Active Problem Hypertrophy of nasal turbinates J34.3 Active Problem Allergic rhinitis, seasonal J30.2 Active Medications Medication Code Code Instructions Start End Status Dosage System Date Date Plaquenil [facility] 42466433120 200 MG Orally Active 1 ta blet Once a day with food or milk Etodolac [facility] [address]-24 Active not defined Levothyroxine [facility] 01321176594 137 MCG Orally Active 1 tablet Sodium Once a day Spironolactone [facility] 03564863337 25 MG Orally Active 1 tablet Once a day with food Doxycycline [facility] 69242140651 100 MG Orally Apr 29Apr Active 1 tablet Hyclate twice a day 2017 Flonase [facility] 69460011897 50 MCG/ACT Active 2 sprays Nasally Once a in each day nostril Claritin [facility] 68673943248 10 MG Orally Active 1 tabl et Once a day Azelastine HCl [facility] 03785600871 0.1 % Nasally May 06, Active 1 puff in Twice a day 2017 each nostril Zantac [facility] 54761259560 150 MG Orally Apr 29, Active 1 tabl et Twice a day 2017 Results No Known Results Summary Purpose eClinicalWorks Submission
--- OUTSIDE RECORDS SUMMARY | 2019-09-29 18:18 | XMS REPORT | Summary of Care ---
:1980 Author Name Jax Daley R.N. Address Unavailable Unavailable , Care Team Providers Name Role Phone MARTHA AQUINO M.D. Unavailable Unavailable Jax Daley R.N. Unavailable Unavailable Martha Aquino MD Unavailable Unavailable Unavailable Unavailable Unavailable Functional Status Name Dates Details Functional status health issues are not documented Status: Name Dates Details Cognitive status health issues are not documented Status: Problems Name Dates Details Raised level of immunoglobulins (795.79, R76.8) Status: Active Olecranon bursitis (726.33, M70.20) Stat us: Active Arthralgia of multiple sites (719.49, M25.50) Status: Active Lymph nodes enlarged (785.6, R59.9) Stat us: Active Normal routine physical examination (V70.0, Z00.00) Status: Active Thyroid Nodule Status: Active Need for influenza vaccination (V04.81, Z23) Status: Active Gastritis (535.50, K29.70) Status: Activ e Cervical radiculopathy, chronic (723.4, M54.12) Status: Active Sinusitis, acute (461.9, J01.90) Status: Active Wheezing (786.07, R06.2) Status: Active Smoking (305.1, F17.200) Status: Active Hypothyroidism (244.9, E03.9) Status: Ac tive Low serum vitamin D (790.6, R79.89) Stat us: Active Low vitamin B12 level (266.2, E53.8) Sta tus: Active Nontropical sprue (579.0, K90.0) Status: Active Fatigue (780.79, R53.83) Status: Active Medications Name Dates Details Centrum Ultra Womens Oral Tablet TAKE 1 TABLET DAILY. Refills: 0 Active Levothyroxine Sodium 137 MCG Oral Tablet TAKE ONE TABLET BY MOUTH DAILY Quantity: 90 Refills: 3 MARTAH AQUINO M.D. Start : 27-Jul-2014 Active Levocetirizine Dihydrochloride 5 MG Oral Tablet TAKE 1 TABLET TWICE DAILY Refills: 0 Start : 06-Feb-2014 Active Spironolactone 25 MG Oral Tablet TAKE 1 TABLET DAILY. Refills: 0 Start : 09-Apr-2015 Active Plaquenil 200 MG Oral Tablet TAKE 2 TABLETS DAILY WITH FOOD Refills: 0 Start : 06-Aug-2018 Active Chantix Starting Month Aaron 0.5 MG X 11 & 1 MG X 42 Oral Tablet TAKE DIRECTED PER PACKAGE INSTRUCTIONS. Quantity: 53 Refills: 0 MARTHA AQUINO M.D. Start : 10-Feb-2019 Active Chantix Continuing Month Aaron 1 MG Oral Tablet TAKE 1 TABLET TWICE DAILY. Quantity: 60 Refills: 5 MARTHA AQUINO M.D. Start : 10-Feb-2019 Active Etodolac 200 MG Oral Capsule TAKE 1 CAPSULE TWICE DAILY Refills: 0 Active Doxycycline Hyclate 100 MG Oral Capsule TAKE 1 CAPSULE TWICE DAILY. Quantity: 60 Refills: 3 Active Allergies and Adverse Reactions Name Dates Details clindamycin (Allergy) Reaction: Rash, It marah Status: Active Latex Exam Gloves MISC (Allergy) Reactio n: Itching, Rash Status: Active Levaquin TABS (Allergy) Reaction: Other Status: Denied Past Medical History Name Dates Details Need for influenza vaccination (V04.81, Z23) Status: Active History of Sjogrens syndrome (710.2, M35.00) Status: Resolved History of Supraventricular Tachycardia With Aberrant Conduc tion (427.89) Status: Resolved Procedures Procedure Dates Details [L] tTG IgA/G Date: 05-May-2019 Immunization Name Dates Details Influenza on: 09-Apr-2015 Lot #: [id number] Fluzone Quadrivalent 0.5 ML Intramuscular Suspension on: Mar-2017 Lot #: [id number] Flublok Quadrivalent 0.5 ML Intramuscular Solution Pre filled Syringe on: 05-May-2019 Lot #: [id number] Adacel 5-2-15.5 LF-MCG/0.5 Intramuscular Suspension on: Lot #: [id number] Family History Name Dates Details Family history of Renal Failure Comments : Family History Status: Active Family history of Hypothyroidism Comment s: Family History Status: Active Name Dates Details Family history of Diabetes type 2, controlled (250.00, E11.9 ) Status: Active Family history of hypertension (V17.49, Z82.49) Status: Active Family history of ESRD (end stage renal disease) (585.6, N18 .6) Status: Active Family history of Status: Activ e Family history of hypothyroidism (V18.19, Z83.49) Status: Active Family history of cardiac disorder (V17.49, Z82.49) Status: Active Family history of cerebrovascular accident (CVA) (V17.1, Z82 .3) Status: Active Name Dates Details Family history of Diabetes type 2, controlled (250.00, E11.9 ) Status: Active Family history of hypercholesterolemia (V18.19, Z83.42) Status: Active Family history of Hypertriglyceridemia (272.1, E78.1) Status: Active Family history of skin cancer (V16.8, Z80.8) Status: Active Social History Name Dates Details - Status: Name Dates Details Former smoker Smoker. current status unknown Vital Signs Date Test Result Details No Known Vitals to report Results Date Description Value Details Results not documented Plan of Care Name Dates Details Planned Observations Planned Goals not documented Planned Encounters Appointment; MARTHA AQUINO M.D. On: 30-Dec-2019 8:45 Interventions Provided Discussion/SummaryGuideline Used: [facility]: [facility] pt wants to know if her aunt should be evaluated by Dr. Aquino or an ENT for thyroid? Aunt is not a pt. Advised pt to ask her aunt's PCP for recommendations but pt insists that she is just asking a question and not on medical advice and would like a callbackPh: [phone] Intended Caller Action: Other: Speak with clinical staff. Additional Information: Task sent to Evelyn Mart Instructions Name Dates Details Instructions not documented Encounters Appointment; MARTHA AQUINO M.D. On: 02-Apr-2018 9:15 Encounter Diagnosis: Problem not documented Appointment; MARTHA AQUINO M.D. On: 06-Aug-2018 13:45 Encounter Diagnosis: Problem not documented Appointment; MARTHA AQUINO M.D. On: 05-May-2019 8:45 Encounter Diagnosis: Problem not documented
--- OUTSIDE RECORDS SUMMARY | 2019-09-29 18:18 | XMS REPORT ---
:1980 Author Organization eClinicalWorks Care Team Providers Name Role Phone Ernesto Aly Provider Role Unavailable Allergies No Known Allergies Problems Problem Type Condition Code Onset Dates Condition Statu s Problem Hearing loss, Perceived- Bilateral H93.293 Active [...] Problem Allergic rhinitis, seasonal J30.2 Active Medications No Known Medications Results No Known Results Summary Purpose eClinicalWorks Submission
--- OUTSIDE RECORDS SUMMARY | 2019-09-29 18:18 | XMS REPORT | Summary of Care ---
:1980 Author Organization [facility] Address [address] [place] [address] Care Team Providers Name Role Phone MARTHA AQUINO M.D. Unavailable Unavailable Martha Aquino MD Unavailable Unavailable [...] TAKE 1 TABLET DAILY. Refills: 0 Active Levocetirizine Dihydrochloride 5 MG Oral Tablet TAKE 1 TABLET TWICE DAILY Refills: 0 Start : 06-Feb-2014 Active Levothyroxine Sodium 137 MCG Oral Tablet TAKE ONE TABLET BY MOUTH DAILY Quantity: 90 Refills: 3 MARTHA AQUINO M.D. Start : 27-Jul-2014 Active Spironolactone 25 MG Oral Tablet TAKE [...] TWICE DAILY. Quantity: 60 Refills: 3 Active Chantix Continuing Month Aaron 1 MG Oral Tablet TAKE 1 TABLET TWICE DAILY. Quantity: 60 Refills: 5 MARTHA AQUINO M.D. Start : 10-Feb-2019 Active Allergies and Adverse Reactions Name Dates [...] Dates Details Influenza on: 09-Apr-2015 Lot #: [id number] Fluzone Quadrivalent 0.5 ML Intramuscular Suspension on: Mar-2017 Lot #: [id number] Flublok Quadrivalent 0.5 ML Intramuscular Solution Pre filled Syringe on: 05-May-2019 Lot #: [id number] Adacel 5-2-15.5 LF-MCG/0.5 Intramuscular Suspension on: Lot #: [id number] Family History Name Dates Details Family history [...] unknown Vital Signs Date Test Result Details :13 BP Systolic 113 mm[Hg] Status: Comments : Location: RUE; Position: Sitting BP Diastolic 75 mm[Hg] Status: Comments: Lo cation: RUE; Position: Sitting Height 66 in Status: Weight 145.8 lb Status: Body Mass Index Calculated 23.53 kg/m2 Status: Body Surface Area Calculated 1.75 m2 Status: Temperature 98.1 f Status: Comments: Me thod: Oral Heart Rate 89 /min Status: Comments: Lo cation: R Brachial Artery; Respiration Rate 16 /min Status: Comments: Qu ality: Normal Physical Findings 0 Status: Comments: Al cohol Screen - How many times in the past yr have you had 5 (for M) or 4 (for F) or 4 (for all > 65yrs) or more drinks in a day? Results Date Description Value Details [id number] [QL] CBC (INCLUDES DIFF/PLT) WBC 3.4 {K/CMM} (Below low threshol d) Range: 3.7-10.4 RBC 3.78 {M/CMM} (Below low thresho ld) Range: 4.20-5.40 Hgb 13.0 g/dl Range: 12.0-16.0 Hct 37.4 % Range: 36.0-48.0 MCV 99.1 fL (Above high threshold) Range: 80.0-98.0 MCH 34.4 pg (Above high threshold) Range: 27.0-31.0 MCHC 34.7 g/dl Range: 32.0-36.0 RDW 13.0 % Range: 11.5-14.5 Platelet 193 {K/CMM} Range: 133-450 Mean Platelet Volume 9.2 fL Range: 7.4- 10.4 :05 [[facility]] Differential Segmented Neutrophils 49.0 % Range: 45. 0-75.0 Monocytes 12.0 % Range: 2.0-12.0 Lymphocytes 33.8 % Range: 20.0-40.0 Eosinophils 4.5 % (Above high threshold) Ra nge: 0.0-4.0 Basophils 0.7 % Range: 0.0-1.0 Segs-Bands # 1.7 {K/CMM} Range: 1.5-8.1 Lymphocytes # 1.1 {K/CMM} Range: 1.0-5.5 Monocytes # 0.4 {K/CMM} Range: 0.0-0.8 Eosinophils # 0.2 {K/CMM} Range: 0.0-0.5 [id number] [[facility]] HEMOGLOBIN A1c Hemoglobin A1c 4.6 % Range: <=5.6 :05 [[facility]] CMP W/EGFR Sodium Level 139 {mEq/l} Range: 135-145 Potassium Level 4.1 {mEq/l} Range: 3.5-5.1 Chloride Level 107 {mEq/l} Range: 95-109 Carbon Dioxide 26 {mEq/l} Range: 24-32 AGAP 10.1 {mEq/l} Range: 10.0-20.0 Glucose Lvl 82 mg/dl Range: 70-99 Comments: Adult reference range values reflect the clinical guidelinesof the [place] [employer]. Creatinine Lvl 0.80 mg/dl Range: 0.50-1.40 Blood Urea Nitrogen 11 mg/dl Range: 7-22 BUN/Creatinine Ratio 14 Range: 6-25 Total Protein 6.8 g/dl Range: 6.4-8.4 Albumin Lvl 4.0 g/dl Range: 3.5-5.0 Globulin 2.8 g/dl Range: 2.7-4.2 A/G Ratio 1.4 Range: 0.7-1.6 Calcium Level Total 8.9 mg/dl Range: 8.5-1 0.5 ALT 25 u/l Range: 0-65 AST 19 u/l Range: 0-37 Bili Total 0.5 mg/dl Range: 0.2-1.3 Alk Phos 71 u/l Range: 39-136 Comments: The pe diatric reference ranges for this test represent a CLSI- basedtransference of the CALIPER database of pediatric reference intervals to the[facility] analyzer (Clinical Biochemistry 46 (2013): 11 97-1219). [facility] has not internally validated these referenceranges and therefore they should be used only in the context of a thoroughclinical assessment. eGFR 93 {ML/MIN/1.7} Comments: The e GFR is calculated using the CKD-EPI formula. In most young, healthyindividuals the eGFR will be >90 mL/min/1.73m2. The eGFR declines with age. AneGFR of 60-89 may be normal in some populations, particularly the elderly, forwhom the CKD-EPI formula has not been extensively validated. Use of the eGFR isnot recommended in the following populations:Individuals with unstable creatinine concentratio ns, including pr egnantpatients and those with serious co-morbid conditions.Patients with extremes in muscle mass or diet.The data above are obtained from the National Kidney Disease Education Program(NK DEP) which addit ionally recommends that when the eGFR is used in patientswith extremes of body mass index for purposes of drug dosing, the eGFR shouldbe multiplied by the estimated BMI. :05 [QL] FERRITIN Ferritin Lvl 152 ng/ml Range: 5-204 :05 [QL] LIPID PANEL Chol 194 mg/dl Range: <=199 Trig 86 mg/dl Range: <=149 HDL Cholesterol 84 mg/dl Range: >=61 CHD Risk 2.31 (Below low threshold) Ran ge: 3.90-5.80 LDL 93 mg/dl Range: <=99 VLDL 17 [id number] [QL] T4, FREE T4 Free 1.32 ng/dl Range: 0.76-1.46 :05 [[facility]] TSH, 3RD GENERATION TSH 0.747 {uIU/ml} Range: 0.360-3.7 40 [id number] [QLH] VITAMIN B12 Vitamin B12 Level 680 pg/ml Range: 254-132 0 :05 [QLH] VITAMIN D, 25-HYDROXY, LC/MS/MS Vitamin D, 25-OH, Total 44.0 ng/ml Range: 3 0.0-100.0 Comments: Refere nce range is based on recommendations in the EndocrineSociety Clinical Practice Guideline (J Clin Endocrinol [id number];96:4887-1445) [id number] [QLH] TISSUE TRANSGLUTAMINASE ANTIBODY, IGA Tissue Transglutaminase (tTG) IgA 1.2 U/ml Range: <=14.9 :05 [H] tTG, IgG Tissue Transglutaminase (tTg) IgG 11.9 U/ml Range: <=14.9 :05 [H] IgA Subclasses IgA Lvl 213 mg/dl Range: 87-352 IgA Subclass 1 156.5 mg/dl Range: 73.2-301. 2 IgA Subclass 2 47.4 mg/dl Range: 13.4-97.9 Comments: Perfor med At: [facility] [address] [id number] Sanjai MD Ph:[phone] At: [facility] [address] [id number] Kyle L MD Ph:[phone] Plan of Care Name Dates Details Planned Observations Planned Goals not documented Planned Encounters Appointment; MARTHA AQUINO M.D. On: 30-Dec-2019 8:45 Instructions Name Dates Details Instructions not documented Encounters Appointment; MARTHA AQUINO M.D. On: 02-Apr-2018 9:15 Encounter Diagnosis: Problem not documented Appointment; MARTHA AQUINO M.D. On: 06-Aug-2018 13:45 Encounter Diagnosis: Problem not documented Appointment; MARTHA AQUINO M.D. On: 05-May-2019 8:45 Encounter Diagnosis: Problem not documented
[2019-09-29] MEDS ORDERED: METOPROLOL TARTRATE 5 MG/5 ML INJ IV ONE (18:22)
[2019-09-29] MEDS ORDERED: METOPROLOL XL 50 MG TAB PO ONE (18:31)
[2019-09-29] MEDS ORDERED: NA CHLORIDE 0.9% 1,000 ML ONE (18:31)
[2019-09-29 18:45] LABS: Absolute Lymphocytes (CBC) 1.6 K/uL (0.7-4.9); Basophils % 0.4 % (0-1.3); Hematocrit 41.6 % (36.0-45.0); Lymphocytes % 16.5 % (15.3-44.8); MPV 9.3 fL (7.6-11.3); Protime INR 0.92
[2019-09-29 19:07] LABS: ALT/SGPT 31 U/L (12-78); AST/SGOT 53 U/L (15-37); Albumin 4.4 g/dL (3.4-5.0); Alkaline Phosphatase 90 U/L (45-117); BUN Blood Urea Nitrogen 7 mg/dL (7-18); Bicarbonate 22 mmol/L (21-32); Bilirubin Direct 0.3 mg/dL (0-0.2); Bilirubin Total 0.8 mg/dL (0.2-1.0); Glucose Level 105 mg/dL (74-106); Magnesium 1.6 mg/dL (1.8-2.4); NT PRO-BNP 112 pg/mL (<125); Potassium 3.4 mmol/L (3.5-5.1); Sodium Level 136 mmol/L (136-145); Troponin (Emerg Dept Use Only) < 0.02 ng/mL (0.0-0.045)
--- NOTE | 2019-09-29 19:23 | ER ---
Nurse's Notes [facility] Name: Mica Cash Age: 38 yrs Sex: Female : 1980 Arrival Date: 09/29/2019 Time: 18:21 Bed 13 Private MD: Diagnosis: Supraventricular tachycardia;Hypomagnesemia;Hypokalemia Presentation: 09/28 18:17 Chief complaint: Palpitations x 20-25 minutes ago, Upon EMS arrival pt was SVT on aa5 monitor. Pt was given Adenosine 12mg IVP without any change. Pt denies chest pain. Care CHASER TAR: 250ml NS bolus, 18 G L AC. 18:17 Acuity: CODY 1 aa5 18:17 Method Of Arrival: EMS: [facility] aa5 18:17 Coronavirus screen: Proceed with normal triage. Patient denies a cough. Patient denies aa5 shortness of breath or difficulty breathing. Patient denies measured and/or subjective temperature greater than 100.4F prior to today's visit. Patient denies travel on a cruise ship or to a country the [facility] currently lists as an affected area. Patient denies contact with known and/or suspected case of COVID-19. Ebola Screen: Patient negative for fever greater than or equal to 101.5 degrees Fahrenheit, and additional compatible Ebola Virus Disease symptoms. Initial Sepsis Screen: Does the patient meet any 2 criteria? HR > 90 bpm. Does the patient have a suspected source of infection? No. Patient's initial sepsis screen is negative. Risk Assessment: Do you want to hurt yourself or someone else? Patient reports no desire to harm self or others. Onset of symptoms was September 29, 2019. Historical: - Allergies: 18:22 Clindamycin; aa5 18:22 Latex, Natural Rubber; aa5 - PMHx: 18:22 SVT; Celiac disease; Thyroid problem; aa5 - PSHx: 18:22 heart ablation; aa5 - Family history:: not pertinent. Vital Signs: 18:17 BP 135 / 95; Pulse 178; Resp 20 S; Temp 98.0(TE); Pulse Ox 100% on R/A; Pain 0/10; aa5 18:22 BP 114 / 76; Pulse 98; Resp 18 S; aa5 20:16 BP 126 / 81; Pulse 91; Resp 14; Pulse Ox 99% on R/A; Pain 0/10; ls4 09/29 00:31 Pain 0/10; ls4 09/28 18:22 Dr. Godwin notified of decreased HR, NSR on monitor. aa5 ED Course: 18:17 Patient arrived in ED. aa5 18:17 Arm band placed on. aa5 18:23 Inserted saline lock: 18 gauge in right antecubital area, using aseptic technique. dm5 ,using aseptic technique. IV inserted by FELIZ Salmeron. 18:24 Jamshid Godwin MD is Attending Physician. [facility] 18:39 Triage completed. aa5 18:43 XRAY Chest (1 view) In Process Unspecified. EDMS 19:00 UDS Sent. lt1 19:23 Gabriel oMdi MD is Referral Physician. [facility] 19:45 Faviola Arce, FELIZ is Primary Nurse. ls4 Administered Medications: 18:20 Drug: Lopressor 5 mg {Note: VO received at 1819.} Route: IVP; Site: left antecubital; dm5 18:50 Follow up: Response: No adverse reaction; Marked relief of symptoms ls4 18:27 Drug: ToPROL XL 25 mg Route: PO; dm5 18:50 Follow up: Response: No adverse reaction; Marked relief of symptoms; Cardiac rhythm ls4 changed 18:27 Drug: NS 0.9% 1000 ml Route: IV; Rate: 1000 ml; Site: right antecubital; dm5 20:19 Follow up: IV Intake: 1000ml ls4 20:21 Follow up: IV Status: Completed infusion; IV Intake: 1000ml ls4 09/29 00:31 Follow up: Pain 0/10 Adult ls4 09/28 19:35 Drug: Magnesium Sulfate 1 grams Route: IVPB; Infused Over: 1 hrs; Site: right ls4 antecubital; 20:35 Follow up: IV Status: Completed infusion; IV Intake: 100ml ls4 19:47 Drug: Potassium Effervescent Tablet 50 mEq Route: PO; ls4 20:16 Follow up: BP 126 / 81; Pulse 91 bpm; Resp 14 bpm; Pulse Ox 99% RA; Pain 0/10 Adult ls4 20:19 Follow up: Response: No adverse reaction ls4 Intake: 20:21 IV: 1000ml; Total: 1000ml. ls4 20:35 IV: 100ml; Total: 1100ml. ls4 Outcome: 19:23 Discharge ordered by MD. orellana 20:59 Patient left the ED. ls4 Signatures: Dispatcher [employer] EDMaria Banda, RN RN dm5 Jamshid Godwin MD MD cha Calderon, Audri, RN RN aa5 Faviola Arce RN RN ls4 Emily Bullock 1 Corrections: (The following items were deleted from the chart) 18:34 18:21 Patient arrived in ED. [facility]5 18:44 18:17 Chief complaint: Palpitations x 20-25 minutes ago, Upon EMS arrival pt was SVT on aa5 monitor. Pt was given Adenosine 12mg IVP without any change. Pt denies chest pain. aa5 20:21 20:20 IV Intake: 1000ml ls4 ls4 12 00:31 05/ 20:19 IV Intake: 1000ml ls4 ls4
--- NOTE | 2019-09-29 19:23 | RAD REPORT ---
EXAM DESCRIPTION: [place]il[place] Single View09/29/2019 6:42 pm CLINICAL HISTORY: Palpitation COMPARISON: 2016 FINDINGS: Nodular opacity overlies the right lung base. The remainder of the lungs appear clear of acute infiltrate. The heart is normal size IMPRESSION: Nodular opacity overlies the right lung base. This probably represents a nipple shadow. A pulmonary nodule is another consideration. It is recommended that the patient have frontal and obli que views chest with right nipple marker for further evaluation
--- NOTE | 2019-09-29 19:24 | EDPHYS ---
Physician Documentation [facility] Name: Mica Cash Age: 38 yrs Sex: Female : 1980 Arrival Date: 09/29/2019 Time: 18:21 Bed 13 Private MD: ED Physician Jamshid Godwin HPI: 09/28 19:16 This 38 yrs old Female presents to ER via EMS with complaints of SVT. esteban 19:16 The patient presents with a history of heart racing. Context: The symptoms occur with [facility] light activity. Onset: The symptoms/episode began/occurred just prior to arrival. Duration: The patient or guardian reports a single episode, that is still ongoing. Modifying factors: The symptoms are aggravated by nothing. The symptoms are alleviated by nothing. Associated signs and symptoms: Pertinent positives: lightheadedness, SOB. Severity of symptoms: At their worst the symptoms were moderate in the emergency department the symptoms are unchanged. The patient has experienced similar episodes in the past, several times, had an ablation at 15 yo. Historical: - Allergies: 18:22 Clindamycin; aa5 18:22 Latex, Natural Rubber; aa5 - PMHx: 18:22 SVT; Celiac disease; Thyroid problem; aa5 - PSHx: 18:22 heart ablation; aa5 - Family history:: not pertinent. ROS: 19:16 Constitutional: Negative for fever, chills, and weight loss, Eyes: Negative for injury, esteban pain, redness, and discharge, ENT: Negative for injury, pain, and discharge, Neck: Negative for injury, pain, and swelling, Respiratory: Negative for shortness of breath, cough, wheezing, and pleuritic chest pain, Abdomen/GI: Negative for abdominal pain, nausea, vomiting, diarrhea, and constipation, Back: Negative for injury and pain, : Negative for injury, bleeding, discharge, and swelling, MS/Extremity: Negative for injury and deformity, Skin: Negative for injury, rash, and discoloration, Neuro: Negative for headache, weakness, numbness, tingling, and seizure, Psych: Negative for depression, anxiety, suicide ideation, homicidal ideation, and hallucinations, Allergy/Immunology: Negative for hives, rash, and allergies, Endocrine: Negative for neck swelling, polydipsia, polyuria, polyphagia, and marked weight changes, Hematologic/Lymphatic: Negative for swollen nodes, abnormal bleeding, and unusual bruising. 19:16 Cardiovascular: Positive for palpitations. Exam: 19:16 Constitutional: This is a well developed, well nourished patient who is awake, alert, esteban and in no acute distress. Head/Face: Normocephalic, atraumatic. Eyes: Pupils equal round and reactive to light, extra-ocular motions intact. Lids and lashes normal. Conjunctiva and sclera are non-icteric and not injected. Cornea within normal limits. Periorbital areas with no swelling, redness, or edema. ENT: Nares patent. No nasal discharge, no septal abnormalities noted. Tympanic membranes are normal and external auditory canals are clear. Oropharynx with no redness, swelling, or masses, exudates, or evidence of obstruction, uvula midline. Mucous membranes moist. Neck: Trachea midline, no thyromegaly or masses palpated, and no cervical lymphadenopathy. Supple, full range of motion without nuchal rigidity, or vertebral point tenderness. No Meningismus. Chest/axilla: Normal chest wall appearance and motion. Nontender with no deformity. No lesions are appreciated. Respiratory: Lungs have equal breath sounds bilaterally, clear to auscultation and percussion. No rales, rhonchi or wheezes noted. No increased work of breathing, no retractions or nasal flaring. Abdomen/GI: Soft, non-tender, with normal bowel sounds. No distension or tympany. No guarding or rebound. No evidence of tenderness throughout. Back: No spinal tenderness. No costovertebral tenderness. Full range of motion. Skin: Warm, dry with normal turgor. Normal color with no rashes, no lesions, and no evidence of cellulitis. MS/ Extremity: Pulses equal, no cyanosis. Neurovascular intact. Full, normal range of motion. Neuro: Awake and alert, GCS 15, oriented to person, place, time, and situation. Cranial nerves II-XII grossly intact. Motor strength 5/5 in all extremities. Sensory grossly intact. Cerebellar exam normal. Normal gait. Psych: Awake, alert, with orientation to person, place and time. Behavior, mood, and affect are within normal limits. 19:16 Cardiovascular: Rate: tachycardic, Rhythm: regular, Pulses: Pulses are 4+ in bilateral radial, brachial, femoral, popliteal, posterior tibial and and dorsalis pedis arteries.. Heart sounds: normal, Edema: is not appreciated, JVD: is not appreciated. 19:16 Musculoskeletal/extremity: Tendon exam: DVT Exam: No signs of deep vein thrombosis. no pain, no swelling, no tenderness, negative Homans' sign noted on exam, no appreciated bluish discoloration, no erythema, no increased warmth. 19:25 ECG was reviewed by the Attending Physician. [facility] 19:26 ECG was reviewed by the Attending Physician. [facility] Vital Signs: 18:17 BP 135 / 95; Pulse 178; Resp 20 S; Temp 98.0(TE); Pulse Ox 100% on R/A; Pain 0/10; aa5 18:22 BP 114 / 76; Pulse 98; Resp 18 S; aa5 20:16 BP 126 / 81; Pulse 91; Resp 14; Pulse Ox 99% on R/A; Pain 0/10; ls4 05 00:31 Pain 0/10; ls4 09/28 18:22 Dr. Godwin notified of decreased HR, NSR on monitor. 5 MDM: 18:24 Patient medically screened. [facility] 19:18 Differential diagnosis: arrythmia, dehydration. Data reviewed: vital signs, nurses [facility] notes, EMS record, lab test result(s), CBC, electrolytes, hepatic panel, EKG, radiologic studies, plain films. Data interpreted: panel monitor: rate is 177 beats/min, rhythm is supraventricular tachycardia, Pulse oximetry: on room air is 100 %. Test interpretation: by ED physician or midlevel provider: ECG, plain radiologic studies. Counseling: I had a detailed discussion with the patient and/or guardian regarding: the historical points, exam findings, and any diagnostic results supporting the discharge/admit diagnosis, lab results, radiology results, the need for outpatient follow up, for definitive care, a expediter. Medication response: lopressor, resolved. ED course: pt explained results, and follow up plan. everything is understood. 19:24 ED course: magnesium and potassium replaced. [facility] 09/28 18:22 Order name: Basic Metabolic Panel; Complete Time: 19:21 [facility] 09/28 18:22 Order name: CBC with Diff; Complete Time: 19:21 [facility] 09/28 18:22 Order name: LFT's; Complete Time: 19:21 [facility] 09/28 18:22 Order name: Magnesium; Complete Time: 19:21 [facility] 09/28 18:22 Order name: NT PRO-BNP; Complete Time: 19:21 [facility] 09/28 18:22 Order name: PT-INR; Complete Time: 19:21 [facility] 09/28 18:22 Order name: Troponin (emerg Dept Use Only); Complete Time: 19:21 [facility] 09/28 18:22 Order name: XRAY Chest (1 view) [facility] 09/28 18:22 Order name: TSH; Complete Time: 19:21 [facility] 09/28 18:27 Order name: UDS [facility] 09/28 19:25 Order name: Urine Dipstick--Ancillary (enter results) [facility] 09/28 19:25 Order name: Urine --Ancillary (enter results) [facility] 09/28 18:22 Order name: EKG; Complete Time: 18:24 [facility] 09/28 18:22 Order name: Cardiac monitoring; Complete Time: 18:31 [facility] 09/28 18:22 Order name: EKG - Nurse/Tech; Complete Time: 18:31 [facility] 09/28 18:22 Order name: IV Saline Lock; Complete Time: 18:31 [facility] 09/28 18:22 Order name: Labs collected and sent; Complete Time: 18:31 [facility] 09/28 18:22 Order name: O2 Per Protocol; Complete Time: 18:31 [facility] 09/28 18:22 Order name: O2 Sat Monitoring; Complete Time: 18:31 [facility] 09/28 18:25 Order name: EKG; Complete Time: 18:[address] [facility] 09/28 18:25 Order name: EKG - Nurse/Tech; Complete Time: 18:[address] [facility] 09/28 18:27 Order name: Urine Dipstick-Ancillary (obtain specimen); Complete Time: 19:[address] [facility] 09/28 18:27 Order name: Urine Test (obtain specimen); Complete Time: 19:[address] [facility] EC:25 Rate is 177 beats/min. Rhythm is regular. QRS Ruby is Normal. MA interval is normal. [facility] QRS interval is normal. QT interval is normal. No Q waves. T waves are Normal. No ST changes noted. Clinical impression: SVT. Interpreted by me. Reviewed by me. 19:26 Rate is 87 beats/min. Rhythm is regular. QRS Ruby is Normal. MA interval is normal. QRS esteban interval is normal. QT interval is normal. No Q waves. T waves are Normal. No ST changes noted. Clinical impression: Normal ECG and No evidence of ischemia. Interpreted by me. Reviewed by me. Administered Medications: 18:20 Drug: Lopressor 5 mg {Note: VO received at 1819.} Route: IVP; Site: left antecubital; dm5 18:50 Follow up: Response: No adverse reaction; Marked relief of symptoms ls4 18:27 Drug: ToPROL XL 25 mg Route: PO; dm5 18:50 Follow up: Response: No adverse reaction; Marked relief of symptoms; Cardiac rhythm ls4 changed 18:27 Drug: NS 0.9% 1000 ml Route: IV; Rate: 1000 ml; Site: right antecubital; dm5 20:19 Follow up: IV Intake: 1000ml ls4 20:21 Follow up: IV Status: Completed infusion; IV Intake: 1000ml ls4 09/29 00:31 Follow up: Pain 0/10 Adult ls4 09/28 19:35 Drug: Magnesium Sulfate 1 grams Route: IVPB; Infused Over: 1 hrs; Site: right ls4 antecubital; 20:35 Follow up: IV Status: Completed infusion; IV Intake: 100ml ls4 19:47 Drug: Potassium Effervescent Tablet 50 mEq Route: PO; ls4 20:16 Follow up: BP 126 / 81; Pulse 91 bpm; Resp 14 bpm; Pulse Ox 99% RA; Pain 0/10 Adult ls4 20:19 Follow up: Response: No adverse reaction ls4 Disposition: 09/29/19 19:23 Discharged to Home. Impression: Supraventricular tachycardia, Hypomagnesemia, Hypokalemia. - Condition is Stable. - Discharge Instructions: Potassium Content of Foods, Hypomagnesemia, Paroxysmal Supraventricular Tachycardia, Paroxysmal Supraventricular Tachycardia, [id number], Hypokalemia, Cardiac Ablation, [id number]. - Prescriptions for Toprol XL 25 mg Oral Tablet - take 1 tablet by ORAL route once daily; 20 tablet. - Medication Reconciliation Form, Thank You Letter, Antibiotic Education, Prescription Opioid Use form. - Follow up: Private Physician; When: 2 - 3 days; Reason: Recheck today's complaints, Continuance of care, Re-evaluation by your physician. Follow up: Gabriel Modi MD; When: 2 - 3 days; Reason: Recheck today's complaints, Re-evaluation by your physician. - Problem is new. - Symptoms have improved. Signatures: Dispatcher [employer] Maria Palmer, RN RN carmina5 Jamshid Godwin MD MD cha Calderon, Audri RN RN aa5 Faviola Arce RN RN ls4 Corrections: (The following items were deleted from the chart) 20:59 19:23 09/29/2019 19:23 Discharged to Home. Impression: Supraventricular tachycardia; ls4 Hypomagnesemia; Hypokalemia. Condition is Stable. Forms are Medication Reconciliation Form, Thank You Letter, Antibiotic Education, Prescription Opioid Use. Follow up: Private Physician; When: 2 - 3 days; Reason: Recheck today's complaints, Continuance of care, Re-evaluation by your physician. Follow up: Gabriel Modi; When: 2 - 3 days; Reason: Recheck today's complaints, Re-evaluation by your physician. Problem is new. Symptoms have improved. esteban
[2019-09-29 19:26] LABS: Urine Blood NEGATIVE (NEG); Urine Glucose NEGATIVE (NEG); Urine Protein NEGATIVE (NEG)
[2019-09-29 19:46] LABS: Barbiturates NEGATIVE (NEGATIVE); Benzodiazepines NEGATIVE (NEGATIVE); Cocaine NEGATIVE (NEGATIVE); METHAMPHETAM NEGATIVE (NEGATIVE); Methadone NEGATIVE (NEGATIVE); Opiates NEGATIVE (NEGATIVE); Phencyclidine NEGATIVE (NEGATIVE); THC Cannibis NEGATIVE (NEGATIVE)
[2019-09-29] MEDS ORDERED: MAGNESIUM SULFATE 1 gm IVPB 1 GM/100 ML BAG IV ONE (19:58)
[2019-09-29] MEDS ORDERED: POTASSIUM 25 MEQ EFFERV TAB ONE (19:58)
[2019-09-29 21:32] VITALS: BP 126/81; O2SAT 99
[2019-09-29 21:37] VITALS: TEMP 97.7
--- NOTE | 2019-09-30 07:20 | EKG ---
Test Date: 2019-09-29 Test Time: 18:38:41 Credit Rating Inspector: SEB MEASUREMENT RESULTS: Intervals: Rate: 87 WA: 168 QRSD: 76 QT: 390 QTc: 469 Byers: P: 44 WA: 168 QRS: 36 T: 51 INTERPRETIVE STATEMENTS: Normal sinus rhythm Normal ECG Compared to ECG 09/29/2019 18:15:55 Supraventricular tachycardia no longer present Myocardial infarct finding no longer present Electronically Signed On 09-30-19 07:19:45 CDT by Gabriel Modi
--- NOTE | 2019-09-30 07:21 | EKG ---
Test Date: 2019-09-29 Test Time: 18:15:55 Rock Mason: ABIGAIL MEASUREMENT RESULTS: Intervals: Rate: 177 WV: QRSD: 82 QT: 290 QTc: 497 Andreas: P: W[place]: QRS: 24 T: 69 INTERPRETIVE STATEMENTS: Supraventricular tachycardia RSR' or QR pattern in V1 suggests right ventricular conduction delay Septal infarct, age undetermined Abnormal ECG No previous ECG available for comparison Electronically Signed On 09-30-19 07:19:51 CDT by Gabriel Modi
== END 2019-09-29 20:59 | disposition home or self-care (01) ==
LOC: ER 18:09
DX: I47.1 Supraventricular tachycardia (principal); E83.42 Hypomagnesemia; E87.6 Hypokalemia; Z88.3 Allergy status to other anti-infective agents; Z88.8 Allergy status to other drugs, medicaments and biological substances; Z91.040 Latex allergy status
CPT/HCPCS: 96365; 96361; 93005 ×2; 85025; 80048; 36415; 83735; 81025; 85610; 80076; 80307 ×8; 84443; 81003; 84484; 83880; 71045; 96375; 99291; J3475; J7030